=== PATIENT | male | born 1950 ===

== ENCOUNTER 2020-11-04 06:50 | Inpatient (IN) | payer MEDICARE ==
[2020-11-04] MEDS ORDERED: WATER FOR INJ Sterile (PF) 10 ML ONE (15:09)
[2020-11-04] MEDS: ZIPRASIDONE MESYLATE 20 MG VIAL IM PRN (15:13)
--- NOTE | 2020-11-04 19:32 | Consultation ---
History of Present Illness - Reason for Consult Consult date: 11/04/20 medical management Requesting physician: ALEX COLON - History of Present Illness 70 YO Male with Vascular Dementia with Behavioral Disturbance, Cerebral Atherosclerosis, DM, HLD admitted to [facility] for Psychiatric stabilization. Consult placed by Dr. Colon for medical management. The patient was seen and evaluated in his room. Patient resting in bed. Patient denies fever, chills, chest pain, palpitation, productive cough, skin rash, recent ill contacts, or known exposure to COVID-19. No reported nursing events. Past History Past Medical History: diabetes, hypertension, hyperlipidemia Past Surgical History: No surgical history, Other (Reviewed) Social history: . denies: smoking, alcohol abuse, prescription drug abuse Family history: diabetes, hypertension Medications and Allergies Allergies Allergy/AdvReac Type Severity Reaction Status Date / Time No Known Allergies Allergy Verified 11/04/20 21:26 Home Medications Medication Instructions Recorded Confirmed Last Taken Type PARoxetine [Paxil] 20 mg PO 11/04/20 Unknown History Pravastatin [Pravachol] 40 mg PO QHS 11/04/20 11/04/20 Unknown History Trazodone HCl 25 mg PO HS 11/04/20 11/04/20 Unknown History glipiZIDE [Glucotrol] 5 mg PO BID 11/04/20 11/04/20 Unknown History Active Meds: Active Medications Pravastatin Sodium (Pravastatin 40 Mg Tab) 40 mg PO QHS [facility] Trazodone HCl (Trazodone 50 Mg Tab) 25 mg PO HS [facility] Ziprasidone (Ziprasidone Mesylate 20 Mg Vial) 10 mg IM Q6H PRN PRN Reason: Agitation Last Admin: 11/04/20 15:13 Dose: 10 mg Documented by: Review of Systems Constitutional: no weight loss, no weight gain, no fever, no chills Ears, nose, mouth and throat: no ear pain, no decreased hearing, no nose pain, no nasal congestion, no nasal discharge Cardiovascular: no chest pain, no orthopnea, no palpitations, no rapid/irregular heart beat, no edema Respiratory: no cough, no cough with sputum, no excessive sputum Gastrointestinal: no abdominal pain, no nausea, no vomiting, no diarrhea Genitourinary Male: no hematuria, no flank pain, no discharge, no urinary frequency, no urinary hesitancy, no nocturia Rectal: no pain, no incontinence, no bleeding Musculoskeletal: no neck stiffness, no neck pain, no low back pain, no leg numbness/tingling Integumentary: no rash, no pruritis, no redness, no sores, no wounds, no jaundice Neurological: no head injury, no transient paralysis, no paralysis, no weakness, no parathesias, no numbness, no tingling, no seizures Psychiatric: no anxiety, no memory loss Endocrine: no cold intolerance, no heat intolerance, no nocturia, no excessive sweating Hematologic/Lymphatic: no easy bruising, no lymphadenopathy Allergic/Immunologic: no urticaria, no allergic rhinitis, no persistent infections Exam - Constitutional Vitals: Temp Pulse Resp BP Pulse Ox 52 L 16 11/04/20 10:25 11/04/20 10:25 General appearance: Present: mild distress - EENT Eyes: Present: PERRL ENT: clear oral mucosa, hearing decreased - Neck Neck: Present: supple, normal ROM - Respiratory Respiratory effort: normal Respiratory: bilateral: CTA - Cardiovascular Heart Sounds: Present: S1 & S2. Absent: rub, click - Extremities Extremities: pulses symmetrical, No edema Peripheral Pulses: within normal limits - Abdominal General gastrointestinal: Present: soft, non-tender, non-distended, normal bowel sounds Male genitourinary: Present: normal - Integumentary Integumentary: Present: clear, warm, dry - Musculoskeletal Musculoskeletal: gait normal, strength equal bilaterally - Psychiatric Psychiatric: cooperative - Neurologic Neurologic: CNII-XII intact, moves all extremities Results - Labs CBC & Chem 7: 11/04/20 21:23 11/04/20 21:23 Assessment and Plan - Patient Problems (1) Vascular dementia with behavioral disturbance Current Visit: Yes Status: Acute Plan to address problem: Verbal prompting, verbal redirection, benzodiazepine therapy as clinically indicated, supportive care. (2) Cerebral atherosclerosis Current Visit: Yes Status: Acute Plan to address problem: Risk factor reduction, antiplatelet therapy as clinically indicated, supportive care. (3) Diabetes Current Visit: Yes Status: Acute Plan to address problem: Consistent carbohydrate diet, resume glipizide 5 mg p.o. twice daily (4) Hypertension Current Visit: Yes Status: Acute Qualifiers: Hypertension type: essential hypertension Qualified Code(s): I10 - Essential (primary) hypertension Plan to address problem: Monitor blood pressure every shift, continue medical management (5) Hyperlipidemia Current Visit: Yes Status: Acute Qualifiers: Hyperlipidemia type: mixed hyperlipidemia Qualified Code(s): E78.2 - Mixed hyperlipidemia Plan to address problem: Low-cholesterol diet , statin therapy.
[2020-11-04 21:35] LABS: Basophils % (Auto) 0.6 % (0.0-1.8); Eosinophils % (Auto) 0.5 % (0.0-4.3); Hematocrit 30.3 % (35.5-45.6); Hemoglobin 10.5 gm/dl (11.8-15.2); Lymphocytes # (Auto) 1.1 K/mm3 (1.2-5.4); Lymphocytes % (Auto) 21.4 % (13.4-35.0); Mean Corpuscular HGB Conc 35 % (32-34); Mean Corpuscular Volume 92 fl (84-94); Monocytes # (Auto) 0.4 K/mm3 (0.0-0.8); Monocytes % (Auto) 7.9 % (0.0-7.3); Platelet Count 167 K/mm3 (140-440); Red Blood Count 3.31 M/mm3 (3.65-5.03); Red Cell Distribution Width 13.2 % (13.2-15.2)
[2020-11-04] MEDS: traZODone 50 MG TAB PO SCH (21:53)
[2020-11-04] MEDS: PRAVASTATIN 40 MG TAB PO SCH (21:54)
[2020-11-04 21:57] LABS: Albumin 3.9 g/dL (3.9-5); Calcium 8.9 mg/dL (8.4-10.2); Chol/HDL Ratio 2.77 %
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
[2020-11-05] MEDS: risperiDONE 0.25 MG TAB PO SCH ×2 (18:29→21:39)
[2020-11-05] MEDS: glipiZIDE 5 MG TAB PO SCH ×2 (18:29→21:39)
[2020-11-05] MEDS: PRAVASTATIN 40 MG TAB PO SCH (21:39)
[2020-11-05] MEDS: traZODone 50 MG TAB PO SCH (21:39)
[2020-11-05] MEDS: VALPROIC ACID 250 MG/5 ML ORAL LIQD PO SCH (21:39)
[2020-11-06] MEDS: risperiDONE 0.25 MG TAB PO SCH ×2 (09:20→21:35)
[2020-11-06] MEDS: glipiZIDE 5 MG TAB PO SCH ×2 (09:20→16:41)
[2020-11-06] MEDS: VALPROIC ACID 250 MG/5 ML ORAL LIQD PO SCH ×2 (09:20→21:34)
--- NOTE | 2020-11-06 14:44 | Progress Note ---
Subjective Date of service: 11/06/20 Principal diagnosis: (1) Dementia with behavioral disturbance Subjective Comment: Psych nurse: Received patient at 1900 on 11/05. He has an angry affect and is having difficulty expressing words. He denies other needs. Last evening the patient indicated he does not like to be rushed. The best communication path with him is to give him choices and allow him to make the decision. When approached in this manner he will cooperate with requests after a short time. He refused to take his bedtime medications and threw them in front of the nurse. Overnight the patient rested quietly and presents as sleeping 7 hours. Will continue to monitor patient for safey. Psych Progress Patient seen this AM, awake and alert in activity room, engaged in conversation but non sensical. Patient says he thinks he knows the year, then he says his brain not thinking enough. Patient talks about being here, and having a room, he wants to go in, needs gas and some other resources, but smiling pleasantly. Patient says he doesnt know why he is here. REVIEW OF SYSTEMS ROS cannot be reliably obtained from the patient due to his withdrwn state MENTAL STATUS EXAMINATION General Appearance and Behavior: Age appropriate, good hygiene, wearing appropriate clothes, uncooperative polite with questioning. Cooperation: Withdrawn Psychomotor Behavior: Psychomotor agitation Mood: Affect and affective range: Flat Thought Process: Tangential, loose associattion Thought Content: Paranoid and confused Speech: Normal volume, Regular rate and rhythm, Intellectual Functioning: Poor Suicidal Ideation: N/A Homicidal Ideation: N/A Impulse Control: Unimpaired Insight and Judgment: Impaired Memory: memory impaired Attention:Distractible, Orientation: Alert, but disoriented and confused Assessment and Plan - Psychiatric problem (1) Dementia with behavioral disturbance Current Visit: Yes Status: Acute Treatment Plan Continue depakote liquid. and risperidone .5mg BID Patient admitted for inpatient psychiatric evaluation, medication adjustment and close monitoring The patient's behavior, mood, sleep and appetite will be closely monitored. Patient enrolled in individual and group therapeutic sessions and encouraged to attend. Patient provided with a safe and structured environment. Patient's physical health needs will be addressed by the Hospitalist. Hospitalist Consulted Labs including CBC, CMP, Lipid profile and Hemoglobin A1C levels ordered for baseline reference Social Assessment will be completed and the Assistant Community Manager will work with patient and family to ensure a suitable and safe disposition Medication adjustment will be made as clinically indicated Usual Wellness Voodoo/Preservation: - Start Trazodone 50 mg po QHS & 50 mg po QHS PRN between 10 PM & 2 AM for insomnia - Start Melatonin 5 mg po QHS to promote circadian rhythm - Start [place]-3 for brain health, reduce impulsivity, and as adjunctive treatment for mood disorder, continue upon discharge given overall benefits. - Start B1 prophylaxis with 200 mg po for 5 days The patient agreed on the treatment plan, understood the risk, benefit, alternative treatment, potential consequence of no treatment, and gave informed consent. Initial Certification Inpatient psych services: I certify that the inpatient psychiatric services are required for treatment that could reasonably be expected to improve the patient's condition. Estimated days: 6 Post hospital care: primary care provider, psychiatric provider Assessment and Plan - Patient Problems (1) Dementia with behavioral disturbance Current Visit: Yes Status: Acute Medications and Allergies Allergies Allergy/AdvReac Type Severity Reaction Status Date / Time No Known Allergies Allergy Verified 11/04/20 21:26 Home Medications Medication Instructions Recorded Confirmed Last Taken Type PARoxetine [Paxil] 20 mg PO DAILY 11/04/20 11/06/20 Unknown History Pravastatin [Pravachol] 40 mg PO QHS 11/04/20 11/04/20 Unknown History Trazodone HCl 25 mg PO HS 11/04/20 11/04/20 Unknown History glipiZIDE [Glucotrol] 5 mg PO BID 11/04/20 11/04/20 Unknown History Aspirin EC [Halfprin EC] 81 mg PO DAILY 11/06/20 11/06/20 Unknown History Docusate Sodium [Colace CAP] 100 mg PO HS 11/06/20 11/06/20 Unknown History Ferrous Sulfate [Iron 325 MG] 325 mg PO DAILY 11/06/20 11/06/20 Unknown History HYDROcodone/APAP 5-325 [[place] 1 tab PO Q8HR PRN 11/06/20 11/06/20 Unknown History 5-325 mg TAB] Melatonin [Melatonin 5MG TAB] 5 mg PO QHS 11/06/20 11/06/20 Unknown History Ondansetron HCl [Zofran] 4 mg PO Q8HR PRN 11/06/20 11/06/20 Unknown History amLODIPine 10 mg PO DAILY 11/06/20 11/06/20 Unknown History donepeziL [Aricept] 10 mg PO HS 11/06/20 11/06/20 Unknown History hydrOXYzine HCL [Atarax] 25 mg PO HS 11/06/20 11/06/20 Unknown History hydrOXYzine HCL [Atarax] 25 mg PO TID PRN 11/06/20 11/06/20 Unknown History lisinopriL [Lisinopril] 10 mg PO DAILY 11/06/20 11/06/20 Unknown History Active Meds: Active Medications Glipizide (Glipizide 5 Mg Tab) 5 mg PO BIDDIAB [facility] Last Admin: 11/06/20 09:20 Dose: 5 mg Documented by: Pravastatin Sodium (Pravastatin 40 Mg Tab) 40 mg PO QHS [facility] Last Admin: 11/05/20 21:39 Dose: 40 mg Documented by: Risperidone (Risperidone 0.25 Mg Tab) 0.5 mg PO BID [facility] Last Admin: 11/06/20 09:20 Dose: 0.5 mg Documented by: Trazodone HCl (Trazodone 50 Mg Tab) 25 mg PO [facility] Last Admin: 11/05/20 21:39 Dose: 25 mg Documented by: Valproic Acid (Valproic Acid 250 Mg/5 Ml Oral Liqd) 250 mg PO BID [facility] Last Admin: 11/06/20 09:20 Dose: 250 mg Documented by: Ziprasidone (Ziprasidone Mesylate 20 Mg Vial) 10 mg IM Q6H PRN PRN Reason: Agitation Last Admin: 11/04/20 15:13 Dose: 10 mg Documented by: Results - Results Labs/Vitals: Laboratory Last Values WBC 5.0 K/mm3 (4.5-11.0) 11/04/20 21: RBC 3.31 M/mm3 (3.65-5.03) L 11/04/20 21:23 Hgb 10.5 gm/dl (11.8-15.2) L 11/04/20 21: Hct 30.3 % (35.5-45.6) L 11/04/20 21: MCV 92 fl (84-94) 11/04/20 21: MCH 32 pg (28-32) 11/04/20 21: MCHC 35 % (32-34) H 11/04/20 21: RDW 13.2 % (13.2-15.2) 11/04/20 21:23 Plt Count 167 K/mm3 (140-440) 11/04/20 21:23 Lymph % (Auto) 21.4 % (13.4-35.0) 11/04/20 21: [place] % (Auto) 7.9 % (0.0-7.3) H 11/04/20 21:23 Eos % (Auto) 0.5 % (0.0-4.3) 11/04/20 21: Baso % (Auto) 0.6 % (0.0-1.8) 11/04/20 21: Lymph # (Auto) 1.1 K/mm3 (1.2-5.4) L 11/04/20 21: [place] # (Auto) 0.4 K/mm3 (0.0-0.8) 11/04/20 21: Eos # (Auto) 0.0 K/mm3 (0.0-0.4) 11/04/20 21: Baso # (Auto) 0.0 K/mm3 (0.0-0.1) 11/04/20 21: Seg Neutrophils % 69.6 % (40.0-70.0) 11/04/20 21: Seg Neutrophils # 3.5 K/mm3 (1.8-7.7) 11/04/20 21: Sodium 141 mmol/L (137-145) 11/04/20 21: Potassium 4.6 mmol/L (3.6-5.0) 11/04/20 21: Chloride 107.8 mmol/L (98-107) H 11/04/20 21: Carbon Dioxide 23 mmol/L (22-30) 11/04/20 21: Anion Gap 15 mmol/L 11/04/20 21:23 BUN 42 mg/dL (9-20) H 11/04/20 21:23 Creatinine 2.8 mg/dL (0.8-1.3) H 11/04/20 21:23 Estimated GFR 23 ml/min 11/04/20 21:23 BUN/Creatinine Ratio 15 % 11/04/20 21:23 Glucose 156 mg/dL (75-100) H 11/04/20 21:23 POC Glucose 200 mg/dL (70-105) H 11/06/20 07:58 Hemoglobin A1c 5.2 % (4-6) 11/04/20 21: Calcium 8.9 mg/dL (8.4-10.2) 11/04/20 21: Total Bilirubin 0.50 mg/dL (0.1-1.2) 11/04/20 21:23 AST 17 units/L (5-40) 11/04/20 21: ALT 9 units/L (7-56) 11/04/20 21:23 Alkaline Phosphatase 100 units/L (35-129) 11/04/20 21:23 Total Protein 6.9 g/dL (6.3-8.2) 11/04/20 21: Albumin 3.9 g/dL (3.9-5) 11/04/20 21: Albumin/Globulin Ratio 1.3 % 11/04/20 21: Triglycerides 73 mg/dL (2-149) 11/04/20 21: Cholesterol 133 mg/dL (50-199) 11/04/20 21:23 LDL Cholesterol Direct 79 mg/dL (50-130) 11/04/20 21: HDL Cholesterol 48 mg/dL (40-59) 11/04/20 21: Cholesterol/HDL Ratio 2.77 % 11/04/20 21:23 TSH 2.440 mlU/mL (0.270-4.200) 11/04/20 21:23 Last Vital Signs Temp 97.7 F 11/05/20 19:46 Pulse 60 11/05/20 19:46 Resp 16 11/05/20 19:46 BP 122/65 11/05/20 19:46 Pulse Ox 100 11/05/20 19:46
[2020-11-06] MEDS: traZODone 50 MG TAB PO SCH (21:35)
[2020-11-06] MEDS: PRAVASTATIN 40 MG TAB PO SCH (21:35)
--- NOTE | 2020-11-07 10:03 | Progress Note ---
Subjective Date of service: 11/07/20 Principal diagnosis: (1) Dementia with behavioral disturbance Subjective Comment: Psych nurse: Pt received sitting quietly in the activity room. Observed to be confused and incongruent. Pt hallucinating and responding to internal stimulus. No sign of pain and no acute distress observed. Will continue to monitor. Psych Progress Patient seen in room today, he is awake and making attempt to get out of bed. Patient had a conversation at this a.m., nurse reported patient was restless all night with poor sleep REVIEW OF SYSTEMS ROS cannot be reliably obtained from the patient due to his withdrwn state MENTAL STATUS EXAMINATION General Appearance and Behavior: Age appropriate, good hygiene, wearing appropriate clothes, uncooperative polite with questioning. Cooperation: Withdrawn Psychomotor Behavior: Psychomotor agitation Mood: Affect and affective range: Flat Thought Process: Tangential, loose associattion Thought Content: Paranoid and confused Speech: Normal volume, Regular rate and rhythm, Intellectual Functioning: Poor Suicidal Ideation: N/A Homicidal Ideation: N/A Impulse Control: Unimpaired Insight and Judgment: Impaired Memory: memory impaired Attention:Distractible, Orientation: Alert, but disoriented and confused Assessment and Plan - Psychiatric problem (1) Dementia with behavioral disturbance Current Visit: Yes Status: Acute Treatment Plan Continue depakote liquid. and risperidone .5mg BID. Remeron 15mh QHS added Patient admitted for inpatient psychiatric evaluation, medication adjustment and close monitoring The patient's behavior, mood, sleep and appetite will be closely monitored. Patient enrolled in individual and group therapeutic sessions and encouraged to attend. Patient provided with a safe and structured environment. Patient's physical health needs will be addressed by the Hospitalist. Hospitalist Consulted Labs including CBC, CMP, Lipid profile and Hemoglobin A1C levels ordered for baseline reference Social Assessment will be completed and the Public Health Director will work with patient and family to ensure a suitable and safe disposition Medication adjustment will be made as clinically indicated Usual Wellness Restorationist/Preservation: - Start Melatonin 5 mg po QHS to promote circadian rhythm - Start [place]-3 for brain health, reduce impulsivity, and as adjunctive treatment for mood disorder, continue upon discharge given overall benefits. - Start B1 prophylaxis with 200 mg po for 5 days The patient agreed on the treatment plan, understood the risk, benefit, alternative treatment, potential consequence of no treatment, and gave informed consent. Initial Certification Inpatient psych services: I certify that the inpatient psychiatric services are required for treatment that could reasonably be expected to improve the patient's condition. Estimated days: 5 Post hospital care: primary care provider, psychiatric provider Assessment and Plan - Patient Problems (1) Dementia with behavioral disturbance Current Visit: Yes Status: Acute Medications and Allergies Allergies Allergy/AdvReac Type Severity Reaction Status Date / Time No Known Allergies Allergy Verified 11/04/20 21:26 Home Medications Medication Instructions Recorded Confirmed Last Taken Type PARoxetine [Paxil] 20 mg PO DAILY 11/04/20 11/06/20 Unknown History Pravastatin [Pravachol] 40 mg PO QHS 11/04/20 11/04/20 Unknown History Trazodone HCl 25 mg PO HS 11/04/20 11/04/20 Unknown History glipiZIDE [Glucotrol] 5 mg PO BID 11/04/20 11/04/20 Unknown History Aspirin EC [Halfprin EC] 81 mg PO DAILY 11/06/20 11/06/20 Unknown History Docusate Sodium [Colace CAP] 100 mg PO HS 11/06/20 11/06/20 Unknown History Ferrous Sulfate [Iron 325 MG] 325 mg PO DAILY 11/06/20 11/06/20 Unknown History HYDROcodone/APAP 5-325 [[place] 1 tab PO Q8HR PRN 11/06/20 11/06/20 Unknown History 5-325 mg TAB] Melatonin [Melatonin 5MG TAB] 5 mg PO QHS 11/06/20 11/06/20 Unknown History Ondansetron HCl [Zofran] 4 mg PO Q8HR PRN 11/06/20 11/06/20 Unknown History amLODIPine 10 mg PO DAILY 11/06/20 11/06/20 Unknown History donepeziL [Aricept] 10 mg PO HS 11/06/20 11/06/20 Unknown History hydrOXYzine HCL [Atarax] 25 mg PO HS 11/06/20 11/06/20 Unknown History hydrOXYzine HCL [Atarax] 25 mg PO TID PRN 11/06/20 11/06/20 Unknown History lisinopriL [Lisinopril] 10 mg PO DAILY 11/06/20 11/06/20 Unknown History Active Meds: Active Medications Glipizide (Glipizide 5 Mg Tab) 5 mg PO BIDDIAB [facility] Last Admin: 11/06/20 16:41 Dose: 5 mg Documented by: Pravastatin Sodium (Pravastatin 40 Mg Tab) 40 mg PO QHS [facility] Last Admin: 11/06/20 21:35 Dose: 40 mg Documented by: Risperidone (Risperidone 0.25 Mg Tab) 0.5 mg PO BID [facility] Last Admin: 11/06/20 21:35 Dose: 0.5 mg Documented by: Trazodone HCl (Trazodone 50 Mg Tab) 25 mg PO HS [facility] Last Admin: 11/06/20 21:35 Dose: 25 mg Documented by: Valproic Acid (Valproic Acid 250 Mg/5 Ml Oral Liqd) 250 mg PO BID [facility] Last Admin: 11/06/20 21:34 Dose: 250 mg Documented by: Ziprasidone (Ziprasidone Mesylate 20 Mg Vial) 10 mg IM Q6H PRN PRN Reason: Agitation Last Admin: 11/04/20 15:13 Dose: 10 mg Documented by: Results - Results Labs/Vitals: Laboratory Last Values WBC 5.0 K/mm3 (4.5-11.0) 11/04/20 21: RBC 3.31 M/mm3 (3.65-5.03) L 11/04/20 21:23 Hgb 10.5 gm/dl (11.8-15.2) L 11/04/20 21: Hct 30.3 % (35.5-45.6) L 11/04/20 21: MCV 92 fl (84-94) 11/04/20 21: MCH 32 pg (28-32) 11/04/20 21: MCHC 35 % (32-34) H 11/04/20 21: RDW 13.2 % (13.2-15.2) 11/04/20 21: Plt Count 167 K/mm3 (140-440) 11/04/20 21: Lymph % (Auto) 21.4 % (13.4-35.0) 11/04/20 21: [place] % (Auto) 7.9 % (0.0-7.3) H 11/04/20 21: Eos % (Auto) 0.5 % (0.0-4.3) 11/04/20 21: Baso % (Auto) 0.6 % (0.0-1.8) 05/13/21 21:23 Lymph # (Auto) 1.1 K/mm3 (1.2-5.4) L 11/04/20 21:23 [place] # (Auto) 0.4 K/mm3 (0.0-0.8) 11/04/20 21:23 Eos # (Auto) 0.0 K/mm3 (0.0-0.4) 11/04/20 21:23 Baso # (Auto) 0.0 K/mm3 (0.0-0.1) 11/04/20 21:23 Seg Neutrophils % 69.6 % (40.0-70.0) 11/04/20 21: Seg Neutrophils # 3.5 K/mm3 (1.8-7.7) 11/04/20 21:23 Sodium 141 mmol/L (137-145) 11/04/20 21: Potassium 4.6 mmol/L (3.6-5.0) 11/04/20 21:23 Chloride 107.8 mmol/L (98-107) H 11/04/20 21:23 Carbon Dioxide 23 mmol/L (22-30) 11/04/20 21:23 Anion Gap 15 mmol/L 11/04/20 21:23 BUN 42 mg/dL (9-20) H 11/04/20 21:23 Creatinine 2.8 mg/dL (0.8-1.3) H 11/04/20 21:23 Estimated GFR 23 ml/min 11/04/20 21:23 BUN/Creatinine Ratio 15 % 11/04/20 21:23 Glucose 156 mg/dL (75-100) H 11/04/20 21:23 POC Glucose 116 mg/dL (70-105) H 11/07/20 07:49 Hemoglobin A1c 5.2 % (4-6) 11/04/20 21:23 Calcium 8.9 mg/dL (8.4-10.2) 11/04/20 21:23 Total Bilirubin 0.50 mg/dL (0.1-1.2) 11/04/20 21:23 AST 17 units/L (5-40) 11/04/20 21:23 ALT 9 units/L (7-56) 11/04/20 21:23 Alkaline Phosphatase 100 units/L (35-129) 11/04/20 21:23 Total Protein 6.9 g/dL (6.3-8.2) 11/04/20: Albumin 3.9 g/dL (3.9-5) 11/04/20: Albumin/Globulin Ratio 1.3 % 11/04/20: Triglycerides 73 mg/dL (2-149) 11/04/20: Cholesterol 133 mg/dL (50-199) 11/04/20: LDL Cholesterol Direct 79 mg/dL (50-130) 11/04/20: HDL Cholesterol 48 mg/dL (40-59) 11/04/20: Cholesterol/HDL Ratio 2.77 % 11/04/20: TSH 2.440 mlU/mL (0.270-4.200) 11/04/20: Last Vital Signs Temp 98.6 F 11/06/20 09:18 Pulse 51 L 11/06/20 09:18 Resp 18 11/06/20 09:18 BP 116/52 11/06/20 09:18 Pulse Ox 99 11/06/20 09:18
[2020-11-07] MEDS: glipiZIDE 5 MG TAB PO SCH ×2 (10:10→16:51)
[2020-11-07] MEDS: VALPROIC ACID 250 MG/5 ML ORAL LIQD PO SCH ×2 (10:10→22:22)
[2020-11-07] MEDS: risperiDONE 0.25 MG TAB PO SCH ×2 (10:10→22:21)
[2020-11-07] MEDS: PRAVASTATIN 40 MG TAB PO SCH (22:21)
[2020-11-07] MEDS: MELATONIN 5 MG TAB PO SCH (22:21)
[2020-11-07] MEDS: MIRTAZAPINE 15 MG TAB PO SCH (22:22)
[2020-11-08] MEDS: glipiZIDE 5 MG TAB PO SCH ×2 (08:54→17:49)
[2020-11-08] MEDS: risperiDONE 0.25 MG TAB PO SCH ×3 (09:25→22:33)
[2020-11-08] MEDS: VALPROIC ACID 250 MG/5 ML ORAL LIQD PO SCH ×3 (09:26→22:33)
--- NOTE | 2020-11-08 11:26 | Progress Note ---
Subjective Date of service: 11/08/20 Principal diagnosis: (1) Dementia with behavioral disturbance Subjective Comment: Psych nurse: Patient slept late this morning. Since awakening her has spent most of his time in the activity. He has some interaction with others. He often wants to walk by himself and pick real and unreal objects off the floor. He presents as independent and wants to make his own decisions. His refused breakfast but ate lunch and dinner. He is medication compliant. Will continue to monitor patient for safety. Psych Progress Patient in room sleeping heaving, responds to loud stimulus but otherwise goes back to bed. WIll continue to observe. REVIEW OF SYSTEMS ROS cannot be reliably obtained from the patient due to his withdrawn state MENTAL STATUS EXAMINATION General Appearance and Behavior: Age appropriate, good hygiene, wearing appropriate clothes, uncooperative polite with questioning. Cooperation: Withdrawn Psychomotor Behavior: Psychomotor agitation Mood: Affect and affective range: Flat Thought Process: Tangential, loose associattion Thought Content: Paranoid and confused Speech: Normal volume, Regular rate and rhythm, Intellectual Functioning: Poor Suicidal Ideation: N/A Homicidal Ideation: N/A Impulse Control: Unimpaired Insight and Judgment: Impaired Memory: memory impaired Attention:Distractible, Orientation: Alert, but disoriented and confused Assessment and Plan - Psychiatric problem (1) Dementia with behavioral disturbance Current Visit: Yes Status: Acute Treatment Plan Continue depakote liquid. and risperidone .5mg BID. Remeron 15mh QHS added Patient admitted for inpatient psychiatric evaluation, medication adjustment and close monitoring The patient's behavior, mood, sleep and appetite will be closely monitored. Patient enrolled in individual and group therapeutic sessions and encouraged to attend. Patient provided with a safe and structured environment. Patient's physical health needs will be addressed by the Hospitalist. Hospitalist Consulted Labs including CBC, CMP, Lipid profile and Hemoglobin A1C levels ordered for baseline reference Social Assessment will be completed and the [place] Inspector will work with patient and family to ensure a suitable and safe disposition Medication adjustment will be made as clinically indicated Usual Wellness Alevism/Preservation: - Start Melatonin 5 mg po QHS to promote circadian rhythm - Start [place]-3 for brain health, reduce impulsivity, and as adjunctive treatment for mood disorder, continue upon discharge given overall benefits. - Start B1 prophylaxis with 200 mg po for 5 days The patient agreed on the treatment plan, understood the risk, benefit, alternative treatment, potential consequence of no treatment, and gave informed consent. Initial Certification Inpatient psych services: I certify that the inpatient psychiatric services are required for treatment that could reasonably be expected to improve the patient's condition. Estimated days: 5 Post hospital care: primary care provider, psychiatric provider Assessment and Plan - Patient Problems (1) Dementia with behavioral disturbance Current Visit: Yes Status: Acute Medications and Allergies Allergies Allergy/AdvReac Type Severity Reaction Status Date / Time No Known Allergies Allergy Verified 11/04/20 21:26 Home Medications Medication Instructions Recorded Confirmed Last Taken Type PARoxetine [Paxil] 20 mg PO DAILY 11/04/20 11/06/20 Unknown History Pravastatin [Pravachol] 40 mg PO QHS 11/04/20 11/04/20 Unknown History Trazodone HCl 25 mg PO HS 11/04/20 11/04/20 Unknown History glipiZIDE [Glucotrol] 5 mg PO BID 11/04/20 11/04/20 Unknown History Aspirin EC [Halfprin EC] 81 mg PO DAILY 11/06/20 11/06/20 Unknown History Docusate Sodium [Colace CAP] 100 mg PO HS 11/06/20 11/06/20 Unknown History Ferrous Sulfate [Iron 325 MG] 325 mg PO DAILY 11/06/20 11/06/20 Unknown History HYDROcodone/APAP 5-325 [[place] 1 tab PO Q8HR PRN 11/06/20 11/06/20 Unknown History 5-325 mg TAB] Melatonin [Melatonin 5MG TAB] 5 mg PO QHS 11/06/20 11/06/20 Unknown History Ondansetron HCl [Zofran] 4 mg PO Q8HR PRN 11/06/20 11/06/20 Unknown History amLODIPine 10 mg PO DAILY 11/06/20 11/06/20 Unknown History donepeziL [Aricept] 10 mg PO HS 11/06/20 11/06/20 Unknown History hydrOXYzine HCL [Atarax] 25 mg PO HS 11/06/20 11/06/20 Unknown History hydrOXYzine HCL [Atarax] 25 mg PO TID PRN 11/06/20 11/06/20 Unknown History lisinopriL [Lisinopril] 10 mg PO DAILY 11/06/20 11/06/20 Unknown History Active Meds: Active Medications Glipizide (Glipizide 5 Mg Tab) 5 mg PO [facility]DIAB [facility] Last Admin: 11/07/20 16:51 Dose: 5 mg Documented by: Melatonin (Melatonin 5 Mg Tab) 5 mg PO QHS [facility] Last Admin: 11/07/20 22:21 Dose: 5 mg Documented by: Mirtazapine (Mirtazapine 15 Mg Tab) 15 mg PO QHS [facility] Last Admin: 11/07/20 22:22 Dose: 15 mg Documented by: Pravastatin Sodium (Pravastatin 40 Mg Tab) 40 mg PO QHS [facility] Last Admin: 11/07/20 22:21 Dose: 40 mg Documented by: Risperidone (Risperidone 0.25 Mg Tab) 0.5 mg PO BID [facility] Last Admin: 11/07/20 22:21 Dose: 0.5 mg Documented by: Valproic Acid (Valproic Acid 250 Mg/5 Ml Oral Liqd) 250 mg PO BID [facility] Last Admin: 11/07/20 22:22 Dose: 250 mg Documented by: Ziprasidone (Ziprasidone Mesylate 20 Mg Vial) 10 mg IM Q6H PRN PRN Reason: Agitation Last Admin: 11/04/20 15:13 Dose: 10 mg Documented by: Results - Results Labs/Vitals: Laboratory Last Values WBC 5.0 K/mm3 (4.5-11.0) 11/04/20 21: RBC 3.31 M/mm3 (3.65-5.03) L 11/04/20 21:23 Hgb 10.5 gm/dl (11.8-15.2) L 11/04/20 21: Hct 30.3 % (35.5-45.6) L 11/04/20 21: MCV 92 fl (84-94) 11/04/20 21: MCH 32 pg (28-32) 11/04/20 21: MCHC 35 % (32-34) H 11/04/20 21: RDW 13.2 % (13.2-15.2) 11/04/20 21: Plt Count 167 K/mm3 (140-440) 11/04/20 21:23 Lymph % (Auto) 21.4 % (13.4-35.0) 11/04/20 21: [place] % (Auto) 7.9 % (0.0-7.3) H 11/04/20 21:23 Eos % (Auto) 0.5 % (0.0-4.3) 11/04/20 21: Baso % (Auto) 0.6 % (0.0-1.8) 11/04/20 21: Lymph # (Auto) 1.1 K/mm3 (1.2-5.4) L 11/04/20 21:23 [place] # (Auto) 0.4 K/mm3 (0.0-0.8) 11/04/20 21: Eos # (Auto) 0.0 K/mm3 (0.0-0.4) 11/04/20 21:23 Baso # (Auto) 0.0 K/mm3 (0.0-0.1) 11/04/20 21: Seg Neutrophils % 69.6 % (40.0-70.0) 11/04/20 21: Seg Neutrophils # 3.5 K/mm3 (1.8-7.7) 11/04/20 21: Sodium 141 mmol/L (137-145) 11/04/20 21: Potassium 4.6 mmol/L (3.6-5.0) 11/04/20 21: Chloride 107.8 mmol/L (98-107) H 11/04/20 21: Carbon Dioxide 23 mmol/L (22-30) 11/04/20 21: Anion Gap 15 mmol/L 11/04/20 21:23 BUN 42 mg/dL (9-20) H 11/04/20 21: Creatinine 2.8 mg/dL (0.8-1.3) H 11/04/20 21:23 Estimated GFR 23 ml/min 11/04/20 21: BUN/Creatinine Ratio 15 % 11/04/20 21:23 Glucose 156 mg/dL (75-100) H 11/04/20 21: POC Glucose 142 mg/dL (70-105) H 11/07/20 21:19 Hemoglobin A1c 5.2 % (4-6) 11/04/20 21:23 Calcium 8.9 mg/dL (8.4-10.2) 11/04/20 21:23 Total Bilirubin 0.50 mg/dL (0.1-1.2) 11/04/20 21: AST 17 units/L (5-40) 11/04/20 21: ALT 9 units/L (7-56) 11/04/20 21: Alkaline Phosphatase 100 units/L (35-129) 11/04/20 21: Total Protein 6.9 g/dL (6.3-8.2) 11/04/20: Albumin 3.9 g/dL (3.9-5) 11/04/20: Albumin/Globulin Ratio 1.3 % 11/04/20 21: Triglycerides 73 mg/dL (2-149) 11/04/20 21: Cholesterol 133 mg/dL (50-199) 11/04/20: LDL Cholesterol Direct 79 mg/dL (50-130) 11/04/20: HDL Cholesterol 48 mg/dL (40-59) 11/04/20: Cholesterol/HDL Ratio 2.77 % 11/04/20: TSH 2.440 mlU/mL (0.270-4.200) 11/04/20 21: Last Vital Signs Temp 97.8 F 11/07/20 19:47 Pulse 66 11/07/20 19:47 Resp 18 11/07/20 19:47 BP 137/83 11/07/20 19:47 Pulse Ox 99 11/07/20 19:47
--- NOTE | 2020-11-08 20:08 | Progress Note ---
Assessment and Plan - Patient Problems (1) Vascular dementia with behavioral disturbance Current Visit: Yes Status: Acute Plan to address problem: Verbal prompting, verbal redirection, benzodiazepine therapy as clinically indicated, supportive care. (2) Cerebral atherosclerosis Current Visit: Yes Status: Acute Plan to address problem: Risk factor reduction, antiplatelet therapy as clinically indicated, supportive care. (3) Diabetes Current Visit: Yes Status: Acute Plan to address problem: Consistent carbohydrate diet, resume glipizide 5 mg p.o. twice daily (4) Hypertension Current Visit: Yes Status: Acute Qualifiers: Hypertension type: essential hypertension Qualified Code(s): I10 - Essential (primary) hypertension Plan to address problem: Monitor blood pressure every shift, continue medical management (5) Hyperlipidemia Current Visit: Yes Status: Acute Qualifiers: Hyperlipidemia type: mixed hyperlipidemia Qualified Code(s): E78.2 - Mixed hyperlipidemia Plan to address problem: Low-cholesterol diet , statin therapy. History Interval history: 70 YO Male with Vascular Dementia with Behavioral Disturbance, Cerebral Atherosclerosis, DM, HLD admitted to [facility] for Psychiatric stabiliza tion. No reported nursing events. Patient denies pain Hospitalist Physical - Constitutional Vitals: Temp Pulse Resp BP Pulse Ox 97.7 F 64 18 171/64 98 11/08/20 10:26 11/08/20 10:26 11/08/20 10:26 11/08/20 10:26 11/08/20 10:26 General appearance: Present: mild distress - EENT Eyes: Present: PERRL, EOM intact ENT: hearing decreased - Neck Neck: Present: supple - Respiratory Respiratory effort: normal Respiratory: bilateral: CTA - Cardiovascular Rhythm: regular Heart Sounds: Present: S1 & S2 - Extremities Extremities: no ischemia Peripheral Pulses: within normal limits - Abdominal General gastrointestinal: soft, non-tender, non-distended - Integumentary Integumentary: Present: clear, dry - Psychiatric Psychiatric: cooperative - Neurologic Neurologic: CNII-XII intact Results - Labs CBC & Chem 7: 11/04/20 21:23 11/04/20 21:23 Labs: Laboratory Last Values WBC 5.0 K/mm3 (4.5-11.0) 11/04/20 21: RBC 3.31 M/mm3 (3.65-5.03) L 11/04/20 21:23 Hgb 10.5 gm/dl (11.8-15.2) L 11/04/20 21: Hct 30.3 % (35.5-45.6) L 11/04/20 21: MCV 92 fl (84-94) 11/04/20 21:23 MCH 32 pg (28-32) 11/04/20 21: MCHC 35 % (32-34) H 11/04/20 21: RDW 13.2 % (13.2-15.2) 11/04/20 21: Plt Count 167 K/mm3 (140-440) 11/04/20 21: Lymph % (Auto) 21.4 % (13.4-35.0) 11/04/20 21: [place] % (Auto) 7.9 % (0.0-7.3) H 11/04/20 21: Eos % (Auto) 0.5 % (0.0-4.3) 11/04/20 21: Baso % (Auto) 0.6 % (0.0-1.8) 11/04/20 21: Lymph # (Auto) 1.1 K/mm3 (1.2-5.4) L 11/04/20 21: [place] # (Auto) 0.4 K/mm3 (0.0-0.8) 11/04/20 21: Eos # (Auto) 0.0 K/mm3 (0.0-0.4) 11/04/20 21: Baso # (Auto) 0.0 K/mm3 (0.0-0.1) 11/04/20 21: Seg Neutrophils % 69.6 % (40.0-70.0) 11/04/20 21: Seg Neutrophils # 3.5 K/mm3 (1.8-7.7) 11/04/20 21: Sodium 141 mmol/L (137-145) 11/04/20 21: Potassium 4.6 mmol/L (3.6-5.0) 11/04/20 21: Chloride 107.8 mmol/L (98-107) H 11/04/20 21: Carbon Dioxide 23 mmol/L (22-30) 11/04/20 21:23 Anion Gap 15 mmol/L 11/04/20 21:23 BUN 42 mg/dL (9-20) H 11/04/20 21:23 Creatinine 2.8 mg/dL (0.8-1.3) H 11/04/20 21:23 Estimated GFR 23 ml/min 11/04/20 21:23 BUN/Creatinine Ratio 15 % 11/04/20 21:23 Glucose 156 mg/dL (75-100) H 11/04/20 21:23 POC Glucose 117 mg/dL (70-105) H 11/08/20 11:59 Hemoglobin A1c 5.2 % (4-6) 11/04/20 21:23 Calcium 8.9 mg/dL (8.4-10.2) 11/04/20 21: Total Bilirubin 0.50 mg/dL (0.1-1.2) 11/04/20 21:23 AST 17 units/L (5-40) 11/04/20 21:23 ALT 9 units/L (7-56) 11/04/20 21:23 Alkaline Phosphatase 100 units/L (35-129) 11/04/20 21:23 Total Protein 6.9 g/dL (6.3-8.2) 11/04/20 21:23 Albumin 3.9 g/dL (3.9-5) 11/04/20 21:23 Albumin/Globulin Ratio 1.3 % 11/04/20 21:23 Triglycerides 73 mg/dL (2-149) 11/04/20 21:23 Cholesterol 133 mg/dL (50-199) 11/04/20 21:23 LDL Cholesterol Direct 79 mg/dL (50-130) 11/04/20 21:23 HDL Cholesterol 48 mg/dL (40-59) 11/04/20 21:23 Cholesterol/HDL Ratio 2.77 % 11/04/20 21:23 TSH 2.440 mlU/mL (0.270-4.200) 11/04/20 21:23 [place]/IV: Voiding Method Incontinent Active Medications - Current Medications Current Medications: Generic Name Dose Route Start Last Admin Trade Name Freq PRN Reason Stop Dose Admin Glipizide 5 mg 11/05/20 13:30 11/08/20 17:49 Glipizide 5 Mg Tab PO Not Given BIDDIAB [facility] Melatonin 5 mg 11/07/20 22:00 11/07/20 22:21 Melatonin 5 Mg Tab PO 5 mg QHS [facility] Administration Mirtazapine 15 mg 11/07/20 22:00 11/07/20 22:22 Mirtazapine 15 Mg Tab PO 15 mg QHS [facility] Administration Pravastatin Sodium 40 mg 11/04/20 22:00 11/07/20 22:21 Pravastatin 40 Mg Tab PO 40 mg QHS [facility] Administration Risperidone 0.5 mg 11/05/20 10:30 11/08/20 09:25 Risperidone 0.25 Mg Tab PO 0.5 mg BID [facility] Administration Valproic Acid 250 mg 11/05/20 22:00 11/08/20 09:26 Valproic Acid 250 Mg/5 Ml Oral Liqd PO 250 mg BID [facility] Administration Ziprasidone 10 mg 11/04/20 13:24 11/04/20 15:13 Ziprasidone Mesylate 20 Mg Vial IM 10 mg Q6H PRN Administration Agitation
--- NOTE | 2020-11-08 20:10 | Progress Note ---
Assessment and Plan - Patient Problems (1) Vascular dementia with behavioral disturbance Current Visit: Yes Status: Acute Plan to address problem: Verbal prompting, verbal redirection, benzodiazepine therapy as clinically indicated, supportive care. (2) Cerebral atherosclerosis Current Visit: Yes Status: Acute Plan to address problem: Risk factor reduction, antiplatelet therapy as clinically indicated, supportive care. (3) Diabetes Current Visit: Yes Status: Acute Plan to address problem: Consistent carbohydrate diet, resume glipizide 5 mg p.o. twice daily (4) Hypertension Current Visit: Yes Status: Acute Qualifiers: Hypertension type: essential hypertension Qualified Code(s): I10 - Essential (primary) hypertension Plan to address problem: Monitor blood pressure every shift, continue medical management (5) Hyperlipidemia Current Visit: Yes Status: Acute Qualifiers: Hyperlipidemia type: mixed hyperlipidemia Qualified Code(s): E78.2 - Mixed hyperlipidemia Plan to address problem: Low-cholesterol diet , statin therapy. History Interval history: 70 YO Male with Vascular Dementia with Behavioral Disturbance, Cerebral Atherosclerosis, DM, HLD admitted to [facility] for Psychiatric stabiliza tion. No reported nursing events. Patient denies pain Hospitalist Physical - Constitutional Vitals: Temp Pulse Resp BP Pulse Ox 97.7 F 64 18 171/64 98 11/08/20 10:26 11/08/20 10:26 11/08/20 10:26 11/08/20 10:26 11/08/20 10:26 General appearance: Present: mild distress - EENT Eyes: Present: PERRL, EOM intact ENT: hearing intact, hearing decreased - Neck Neck: Present: supple - Respiratory Respiratory effort: normal Respiratory: bilateral: CTA - Cardiovascular Rhythm: regular Heart Sounds: Present: S1 & S2 - Extremities Extremities: no ischemia Peripheral Pulses: within normal limits - Abdominal General gastrointestinal: soft, non-tender, non-distended - Integumentary Integumentary: Present: clear, dry - Psychiatric Psychiatric: cooperative - Neurologic Neurologic: CNII-XII intact Results - Labs CBC & Chem 7: 11/04/20 21:23 11/04/20 21:23 Labs: Laboratory Last Values WBC 5.0 K/mm3 (4.5-11.0) 11/04/20 21: RBC 3.31 M/mm3 (3.65-5.03) L 11/04/20 21:23 Hgb 10.5 gm/dl (11.8-15.2) L 11/04/20 21: Hct 30.3 % (35.5-45.6) L 11/04/20 21: MCV 92 fl (84-94) 11/04/20 21:23 MCH 32 pg (28-32) 11/04/20 21: MCHC 35 % (32-34) H 11/04/20 21: RDW 13.2 % (13.2-15.2) 11/04/20 21: Plt Count 167 K/mm3 (140-440) 11/04/20 21: Lymph % (Auto) 21.4 % (13.4-35.0) 11/04/20 21: [place] % (Auto) 7.9 % (0.0-7.3) H 11/04/20 21: Eos % (Auto) 0.5 % (0.0-4.3) 11/04/20 21: Baso % (Auto) 0.6 % (0.0-1.8) 11/04/20 21: Lymph # (Auto) 1.1 K/mm3 (1.2-5.4) L 11/04/20 21: [place] # (Auto) 0.4 K/mm3 (0.0-0.8) 11/04/20 21: Eos # (Auto) 0.0 K/mm3 (0.0-0.4) 11/04/20 21: Baso # (Auto) 0.0 K/mm3 (0.0-0.1) 11/04/20 21: Seg Neutrophils % 69.6 % (40.0-70.0) 11/04/20 21: Seg Neutrophils # 3.5 K/mm3 (1.8-7.7) 11/04/20 21: Sodium 141 mmol/L (137-145) 11/04/20 21: Potassium 4.6 mmol/L (3.6-5.0) 11/04/20 21: Chloride 107.8 mmol/L (98-107) H 11/04/20 21: Carbon Dioxide 23 mmol/L (22-30) 11/04/20 21: Anion Gap 15 mmol/L 11/04/20 21:23 BUN 42 mg/dL (9-20) H 11/04/20 21:23 Creatinine 2.8 mg/dL (0.8-1.3) H 11/04/20 21:23 Estimated GFR 23 ml/min 11/04/20 21:23 BUN/Creatinine Ratio 15 % 11/04/20 21:23 Glucose 156 mg/dL (75-100) H 11/04/20 21:23 POC Glucose 117 mg/dL (70-105) H 11/08/20 11:59 Hemoglobin A1c 5.2 % (4-6) 11/04/20 21:23 Calcium 8.9 mg/dL (8.4-10.2) 11/04/20 21: Total Bilirubin 0.50 mg/dL (0.1-1.2) 11/04/20 21: AST 17 units/L (5-40) 11/04/20 21: ALT 9 units/L (7-56) 11/04/20 21: Alkaline Phosphatase 100 units/L (35-129) 11/04/20 21:23 Total Protein 6.9 g/dL (6.3-8.2) 11/04/20 21: Albumin 3.9 g/dL (3.9-5) 11/04/20 21: Albumin/Globulin Ratio 1.3 % 11/04/20 21:23 Triglycerides 73 mg/dL (2-149) 11/04/20 21:23 Cholesterol 133 mg/dL (50-199) 11/04/20 21:23 LDL Cholesterol Direct 79 mg/dL (50-130) 11/04/20 21:23 HDL Cholesterol 48 mg/dL (40-59) 11/04/20 21:23 Cholesterol/HDL Ratio 2.77 % 11/04/20 21: TSH 2.440 mlU/mL (0.270-4.200) 11/04/20 21:23 [place]/IV: Voiding Method Incontinent Active Medications - Current Medications Current Medications: Generic Name Dose Route Start Last Admin Trade Name Freq PRN Reason Stop Dose Admin Glipizide 5 mg 11/05/20 13:30 11/08/20 17:49 Glipizide 5 Mg Tab PO Not Given BIDDIAB EDUARDO Melatonin 5 mg 11/07/20 22:00 11/07/20 22:21 Melatonin 5 Mg Tab PO 5 mg QHS EDUARDO Administration Mirtazapine 15 mg 11/07/20 22:00 11/07/20 22:22 Mirtazapine 15 Mg Tab PO 15 mg QHS EDUARDO Administration Pravastatin Sodium 40 mg 11/04/20 22:00 11/07/20 22:21 Pravastatin 40 Mg Tab PO 40 mg QHS EDUARDO Administration Risperidone 0.5 mg 11/05/20 10:30 11/08/20 09:25 Risperidone 0.25 Mg Tab PO 0.5 mg BID EDUARDO Administration Valproic Acid 250 mg 11/05/20 22:00 11/08/20 09:26 Valproic Acid 250 Mg/5 Ml Oral Liqd PO 250 mg BID EDUARDO Administration Ziprasidone 10 mg 11/04/20 13:24 11/04/20 15:13 Ziprasidone Mesylate 20 Mg Vial IM 10 mg Q6H PRN Administration Agitation
[2020-11-08] MEDS: PRAVASTATIN 40 MG TAB PO SCH ×2 (22:19→22:33)
[2020-11-08] MEDS: MIRTAZAPINE 15 MG TAB PO SCH ×2 (22:19→22:33)
[2020-11-08] MEDS: MELATONIN 5 MG TAB PO SCH ×2 (22:19→22:33)
[2020-11-09] MEDS: glipiZIDE 5 MG TAB PO SCH ×2 (08:00→18:09)
--- NOTE | 2020-11-09 08:42 | Progress Note ---
Subjective Date of service: 11/09/20 Principal diagnosis: (1) Dementia with behavioral disturbance Subjective Comment: Psych nurse: Last evening the patient was having increased vh aeb continually reaching into the floor grabbing at unseen objects. When trying to assist him from falling he would become agitated and try to hit out at staff. He only ate 4 bites of applesauce and drank 1 cup of juice all shift. He became combative while refusing his medication. His speech is increasingly impaired. Overnight the patient rested quietly. He slept 8 hours. Will continue to monitor patient for safety. Psych Progress Nurse reports patient not eating and as active as before. Went to see patient, pt awake in bed, patient greeted, he responded and said good morning. Patient asked if he slpt good and he said. I asked patient why he is not eating, he states because he doesnt care and does want to. I tried to talk to patient again but this time, patient became agitated and he kicked me hard in the groin aware. I walked away. Reason for continued acute inpatient psychiatric hospitalization: Persistently physically agitated unprovoked behavior REVIEW OF SYSTEMS ROS cannot be reliably obtained from the patient due to his withdrawn state MENTAL STATUS EXAMINATION General Appearance and Behavior: Age appropriate, good hygiene, wearing appropriate clothes, uncooperative polite with questioning. Cooperation: Withdrawn Psychomotor Behavior: Psychomotor agitation Mood: Affect and affective range: Flat Thought Process: Tangential, loose associattion Thought Content: Paranoid and confused Speech: Normal volume, Regular rate and rhythm, Intellectual Functioning: Poor Suicidal Ideation: N/A Homicidal Ideation: N/A Impulse Control: Unimpaired Insight and Judgment: Impaired Memory: memory impaired Attention:Distractible, Orientation: Alert, but disoriented and confused Assessment and Plan - Psychiatric problem (1) Dementia with behavioral disturbance Current Visit: Yes Status: Acute Treatment Plan Continue depakote liquid. and risperidone .5mg BID. Remeron 15mh QHS added Patient admitted for inpatient psychiatric evaluation, medication adjustment and close monitoring The patient's behavior, mood, sleep and appetite will be closely monitored. Patient enrolled in individual and group therapeutic sessions and encouraged to attend. Patient provided with a safe and structured environment. Patient's physical health needs will be addressed by the Hospitalist. Hospitalist Consulted Labs including CBC, CMP, Lipid profile and Hemoglobin A1C levels ordered for baseline reference Social Assessment will be completed and the Peripatologist will work with patient and family to ensure a suitable and safe disposition Medication adjustment will be made as clinically indicated Usual Wellness Gnosticism/Preservation: - Start Melatonin 5 mg po QHS to promote circadian rhythm - Start [place]-3 for brain health, reduce impulsivity, and as adjunctive treatment for mood disorder, continue upon discharge given overall benefits. - Start B1 prophylaxis with 200 mg po for 5 days The patient agreed on the treatment plan, understood the risk, benefit, alternative treatment, potential consequence of no treatment, and gave informed consent. Initial Certification Inpatient psych services: I certify that the inpatient psychiatric services are required for treatment that could reasonably be expected to improve the patient's condition. Estimated days: 4 Post hospital care: primary care provider, psychiatric provider Assessment and Plan - Patient Problems (1) Dementia with behavioral disturbance Current Visit: Yes Status: Acute Medications and Allergies Allergies Allergy/AdvReac Type Severity Reaction Status Date / Time No Known Allergies Allergy Verified 11/04/20 21:26 Home Medications Medication Instructions Recorded Confirmed Last Taken Type PARoxetine [Paxil] 20 mg PO DAILY 11/04/20 11/06/20 Unknown History Pravastatin [Pravachol] 40 mg PO QHS 11/04/20 11/04/20 Unknown History Trazodone HCl 25 mg PO HS 11/04/20 11/04/20 Unknown History glipiZIDE [Glucotrol] 5 mg PO BID 11/04/20 11/04/20 Unknown History Aspirin EC [Halfprin EC] 81 mg PO DAILY 11/06/20 11/06/20 Unknown History Docusate Sodium [Colace CAP] 100 mg PO HS 11/06/20 11/06/20 Unknown History Ferrous Sulfate [Iron 325 MG] 325 mg PO DAILY 11/06/20 11/06/20 Unknown History HYDROcodone/APAP 5-325 [[place] 1 tab PO Q8HR PRN 11/06/20 11/06/20 Unknown History 5-325 mg TAB] Melatonin [Melatonin 5MG TAB] 5 mg PO QHS 11/06/20 11/06/20 Unknown History Ondansetron HCl [Zofran] 4 mg PO Q8HR PRN 11/06/20 11/06/20 Unknown History amLODIPine 10 mg PO DAILY 11/06/20 11/06/20 Unknown History donepeziL [Aricept] 10 mg PO HS 11/06/20 11/06/20 Unknown History hydrOXYzine HCL [Atarax] 25 mg PO HS 11/06/20 11/06/20 Unknown History hydrOXYzine HCL [Atarax] 25 mg PO TID PRN 11/06/20 11/06/20 Unknown History lisinopriL [Lisinopril] 10 mg PO DAILY 11/06/20 11/06/20 Unknown History Active Meds: Active Medications Glipizide (Glipizide 5 Mg Tab) 5 mg PO BIDDIAB [facility] Last Admin: 11/08/20 17:49 Dose: Not Given Documented by: Melatonin (Melatonin 5 Mg Tab) 5 mg PO QHS [facility] Last Admin: 11/08/20 22:33 Dose: Not Given Documented by: Mirtazapine (Mirtazapine 15 Mg Tab) 15 mg PO QHS [facility] Last Admin: 11/08/20 22:33 Dose: Not Given Documented by: Pravastatin Sodium (Pravastatin 40 Mg Tab) 40 mg PO QHS [facility] Last Admin: 11/08/20 22:33 Dose: Not Given Documented by: Risperidone (Risperidone 0.25 Mg Tab) 0.5 mg PO BID [facility] Last Admin: 11/08/20 22:33 Dose: Not Given Documented by: Valproic Acid (Valproic Acid 250 Mg/5 Ml Oral Liqd) 250 mg PO BID [facility] Last Admin: 11/08/20 22:33 Dose: Not Given Documented by: Ziprasidone (Ziprasidone Mesylate 20 Mg Vial) 10 mg IM Q6H PRN PRN Reason: Agitation Last Admin: 11/04/20 15:13 Dose: 10 mg Documented by: Results - Results Labs/Vitals: Laboratory Last Values WBC 5.0 K/mm3 (4.5-11.0) 11/04/20 21: RBC 3.31 M/mm3 (3.65-5.03) L 11/04/20 21:23 Hgb 10.5 gm/dl (11.8-15.2) L 11/04/20 21:23 Hct 30.3 % (35.5-45.6) L 11/04/20 21:23 MCV 92 fl (84-94) 11/04/20 21: MCH 32 pg (28-32) 11/04/20 21:23 MCHC 35 % (32-34) H 11/04/20 21: RDW 13.2 % (13.2-15.2) 11/04/20 21:23 Plt Count 167 K/mm3 (140-440) 11/04/20 21:23 Lymph % (Auto) 21.4 % (13.4-35.0) 11/04/20 21:23 [place] % (Auto) 7.9 % (0.0-7.3) H 11/04/20 21:23 Eos % (Auto) 0.5 % (0.0-4.3) 11/04/20 21: Baso % (Auto) 0.6 % (0.0-1.8) 11/04/20 21: Lymph # (Auto) 1.1 K/mm3 (1.2-5.4) L 11/04/20 21: [place] # (Auto) 0.4 K/mm3 (0.0-0.8) 11/04/20 21: Eos # (Auto) 0.0 K/mm3 (0.0-0.4) 11/04/20 21: Baso # (Auto) 0.0 K/mm3 (0.0-0.1) 11/04/20 21: Seg Neutrophils % 69.6 % (40.0-70.0) 11/04/20 21: Seg Neutrophils # 3.5 K/mm3 (1.8-7.7) 11/04/20 21:23 Sodium 141 mmol/L (137-145) 11/04/20 21: Potassium 4.6 mmol/L (3.6-5.0) 11/04/20 21: Chloride 107.8 mmol/L (98-107) H 11/04/20 21:23 Carbon Dioxide 23 mmol/L (22-30) 11/04/20 21:23 Anion Gap 15 mmol/L 11/04/20 21:23 BUN 42 mg/dL (9-20) H 11/04/20 21:23 Creatinine 2.8 mg/dL (0.8-1.3) H 11/04/20 21:23 Estimated GFR 23 ml/min 11/04/20 21:23 BUN/Creatinine Ratio 15 % 11/04/20 21:23 Glucose 156 mg/dL (75-100) H 11/04/20 21:23 POC Glucose 84 mg/dL (70-105) 11/08/20 19:59 Hemoglobin A1c 5.2 % (4-6) 11/04/20 21: Calcium 8.9 mg/dL (8.4-10.2) 11/04/20 21: Total Bilirubin 0.50 mg/dL (0.1-1.2) 11/04/20 21: AST 17 units/L (5-40) 11/04/20 21: ALT 9 units/L (7-56) 11/04/20 21: Alkaline Phosphatase 100 units/L (35-129) 11/04/20 21: Total Protein 6.9 g/dL (6.3-8.2) 11/04/20: Albumin 3.9 g/dL (3.9-5) 11/04/20 21: Albumin/Globulin Ratio 1.3 % 11/04/20 21: Triglycerides 73 mg/dL (2-149) 11/04/20 21: Cholesterol 133 mg/dL (50-199) 11/04/20 21: LDL Cholesterol Direct 79 mg/dL (50-130) 11/04/20 21: HDL Cholesterol 48 mg/dL (40-59) 11/04/20: Cholesterol/HDL Ratio 2.77 % 11/04/20 21: TSH 2.440 mlU/mL (0.270-4.200) 11/04/20 21:23 Last Vital Signs Temp 98.1 F 11/08/20 22:00 Pulse 56 L 11/08/20 22:00 Resp 20 11/08/20 22:00 BP 147/59 11/08/20 22:00 Pulse Ox 98 11/08/20 22:00
[2020-11-09] MEDS: risperiDONE 0.25 MG TAB PO SCH ×2 (13:00→21:49)
[2020-11-09] MEDS: VALPROIC ACID 250 MG/5 ML ORAL LIQD PO SCH ×2 (13:00→21:50)
[2020-11-09] MEDS: MELATONIN 5 MG TAB PO SCH (21:49)
[2020-11-09] MEDS: MIRTAZAPINE 15 MG TAB PO SCH (21:50)
[2020-11-09] MEDS: PRAVASTATIN 40 MG TAB PO SCH (21:50)
[2020-11-09 23:50] LABS: Calcium 8.5 mg/dL (8.4-10.2)
[2020-11-09] MEDS: ZIPRASIDONE MESYLATE 20 MG VIAL IM PRN (23:55)
--- NOTE | 2020-11-10 08:50 | Progress Note ---
Subjective Date of service: 11/10/20 Principal diagnosis: (1) Dementia with behavioral disturbance Subjective Comment: Psych nurse: [address] Aaron notified of patient not eating or drinking the past days, blood work had been ordered, lab yet to draw. Lab was reminded to come draw. Pt better late morning, he ate 50% breakfast and a few bites for lunch. Pt. was cursing, resisting care, ambulating with his back bent and trying to pick stuff off the floor. Staff closely monitoring pt. Psych Progress Mr Hernandez seen in room, seated up right, when asked questions, patient started laughing, mimicking me, and then mentioned he would spit on me. Patient then spoke to self saying" this one comes in, referring to me that I am always talking. WHen asked ho whe is doing, patient says he is the best. Reason for continued acute inpatient psychiatric hospitalization: Risperidone increased. Persistently physically agitated unprovoked behavior REVIEW OF SYSTEMS ROS cannot be reliably obtained from the patient due to his withdrawn state MENTAL STATUS EXAMINATION General Appearance and Behavior: Age appropriate, good hygiene, wearing appropriate clothes, uncooperative irritable with questioning. Cooperation: Withdrawn Psychomotor Behavior: Psychomotor agitation Mood: "the best" Affect and affective range: Euthymic Thought Process: Tangential, loose associattion Thought Content: Paranoid and confused Speech: Normal volume, Regular rate and rhythm, Intellectual Functioning: Poor Suicidal Ideation: N/A Homicidal Ideation: N/A Impulse Control: Unimpaired Insight and Judgment: Impaired Memory: memory impaired Attention:Distractible, Orientation: Alert, but disoriented and confused Assessment and Plan - Psychiatric problem (1) Dementia with behavioral disturbance Current Visit: Yes Status: Acute Treatment Plan Risperidone liquid 1mg BID started Continue Remeron 15mh QHS added Patient admitted for inpatient psychiatric evaluation, medication adjustment and close monitoring The patient's behavior, mood, sleep and appetite will be closely monitored. Patient enrolled in individual and group therapeutic sessions and encouraged to attend. Patient provided with a safe and structured environment. Patient's physical health needs will be addressed by the Hospitalist. Hospitalist Consulted Labs including CBC, CMP, Lipid profile and Hemoglobin A1C levels ordered for baseline reference Social Assessment will be completed and the Security Attendant will work with patient and family to ensure a suitable and safe disposition Medication adjustment will be made as clinically indicated Usual Wellness Confucianist/Preservation: - Start Melatonin 5 mg po QHS to promote circadian rhythm - Start [place]-3 for brain health, reduce impulsivity, and as adjunctive treatment for mood disorder, continue upon discharge given overall benefits. - Start B1 prophylaxis with 200 mg po for 5 days The patient agreed on the treatment plan, understood the risk, benefit, alternative treatment, potential consequence of no treatment, and gave informed consent. Initial Certification Inpatient psych services: I certify that the inpatient psychiatric services are required for treatment that could reasonably be expected to improve the patient's condition. Estimated days: 4 Post hospital care: primary care provider, psychiatric provider Assessment and Plan - Patient Problems (1) Dementia with behavioral disturbance Current Visit: Yes Status: Acute Medications and Allergies Allergies Allergy/AdvReac Type Severity Reaction Status Date / Time No Known Allergies Allergy Verified 11/04/20 21:26 Home Medications Medication Instructions Recorded Confirmed Last Taken Type PARoxetine [Paxil] 20 mg PO DAILY 11/04/20 11/06/20 Unknown History Pravastatin [Pravachol] 40 mg PO QHS 11/04/20 11/04/20 Unknown History Trazodone HCl 25 mg PO HS 11/04/20 11/04/20 Unknown History glipiZIDE [Glucotrol] 5 mg PO BID 11/04/20 11/04/20 Unknown History Aspirin EC [Halfprin EC] 81 mg PO DAILY 11/06/20 11/06/20 Unknown History Docusate Sodium [Colace CAP] 100 mg PO HS 11/06/20 11/06/20 Unknown History Ferrous Sulfate [Iron 325 MG] 325 mg PO DAILY 11/06/20 11/06/20 Unknown History HYDROcodone/APAP 5-325 [[place] 1 tab PO Q8HR PRN 11/06/20 11/06/20 Unknown History 5-325 mg TAB] Melatonin [Melatonin 5MG TAB] 5 mg PO QHS 11/06/20 11/06/20 Unknown History Ondansetron HCl [Zofran] 4 mg PO Q8HR PRN 11/06/20 11/06/20 Unknown History amLODIPine 10 mg PO DAILY 11/06/20 11/06/20 Unknown History donepeziL [Aricept] 10 mg PO HS 11/06/20 11/06/20 Unknown History hydrOXYzine HCL [Atarax] 25 mg PO HS 11/06/20 11/06/20 Unknown History hydrOXYzine HCL [Atarax] 25 mg PO TID PRN 11/06/20 11/06/20 Unknown History lisinopriL [Lisinopril] 10 mg PO DAILY 11/06/20 11/06/20 Unknown History Active Meds: Active Medications Glipizide (Glipizide 5 Mg Tab) 5 mg PO BIDDIAB [facility] Last Admin: 11/09/20 18:09 Dose: Not Given Documented by: Melatonin (Melatonin 5 Mg Tab) 5 mg PO QHS [facility] Last Admin: 11/09/20 21:49 Dose: 5 mg Documented by: Mirtazapine (Mirtazapine 15 Mg Tab) 15 mg PO QHS [facility] Last Admin: 11/09/20 21:50 Dose: 15 mg Documented by: Pravastatin Sodium (Pravastatin 40 Mg Tab) 40 mg PO QHS [facility] Last Admin: 11/09/20 21:50 Dose: 40 mg Documented by: Risperidone (Risperidone 0.25 Mg Tab) 0.5 mg PO BID [facility] Last Admin: 11/09/20 21:49 Dose: 0.5 mg Documented by: Valproic Acid (Valproic Acid 250 Mg/5 Ml Oral Liqd) 250 mg PO BID [facility] Last Admin: 11/09/20 21:50 Dose: 250 mg Documented by: Results - Results Labs/Vitals: Laboratory Last Values WBC 5.0 K/mm3 (4.5-11.0) 11/04/20 21: RBC 3.31 M/mm3 (3.65-5.03) L 11/04/20 21:23 Hgb 10.5 gm/dl (11.8-15.2) L 11/04/20 21:23 Hct 30.3 % (35.5-45.6) L 11/04/20 21:23 MCV 92 fl (84-94) 11/04/20 21: MCH 32 pg (28-32) 11/04/20 21: MCHC 35 % (32-34) H 11/04/20 21: RDW 13.2 % (13.2-15.2) 11/04/20 21: Plt Count 167 K/mm3 (140-440) 11/04/20 21:23 Lymph % (Auto) 21.4 % (13.4-35.0) 11/04/20 21:23 [place] % (Auto) 7.9 % (0.0-7.3) H 11/04/20 21:23 Eos % (Auto) 0.5 % (0.0-4.3) 11/04/20 21: Baso % (Auto) 0.6 % (0.0-1.8) 11/04/20 21:23 Lymph # (Auto) 1.1 K/mm3 (1.2-5.4) L 11/04/20 21:23 [place] # (Auto) 0.4 K/mm3 (0.0-0.8) 11/04/20 21:23 Eos # (Auto) 0.0 K/mm3 (0.0-0.4) 11/04/20 21: Baso # (Auto) 0.0 K/mm3 (0.0-0.1) 11/04/20 21: Seg Neutrophils % 69.6 % (40.0-70.0) 11/04/20 21: Seg Neutrophils # 3.5 K/mm3 (1.8-7.7) 11/04/20 21:23 Sodium 140 mmol/L (137-145) 11/09/20 23:05 Potassium 4.6 mmol/L (3.6-5.0) 11/09/20 23:05 Chloride 106.9 mmol/L (98-107) 11/09/20 23:05 Carbon Dioxide 20 mmol/L (22-30) L 11/09/20 23:05 Anion Gap 18 mmol/L 11/09/20 23:05 BUN 42 mg/dL (9-20) H 11/09/20 23:05 Creatinine 3.0 mg/dL (0.8-1.3) H 11/09/20 23:05 Estimated GFR 21 ml/min 11/09/20 23:05 BUN/Creatinine Ratio 14 % 11/09/20 23:05 Glucose 204 mg/dL (75-100) H 11/09/20 23:05 POC Glucose 78 mg/dL (70-105) 11/09/20 06:24 Hemoglobin A1c 5.2 % (4-6) 11/04/20 21:23 Calcium 8.5 mg/dL (8.4-10.2) 11/09/20 23:05 Total Bilirubin 0.50 mg/dL (0.1-1.2) 11/04/20 21: AST 17 units/L (5-40) 11/04/20: ALT 9 units/L (7-56) 11/04/20: Alkaline Phosphatase 100 units/L (35-129) 11/04/20: Total Protein 6.9 g/dL (6.3-8.2) 11/04/20: Albumin 3.9 g/dL (3.9-5) 11/04/20: Albumin/Globulin Ratio 1.3 % 11/04/20: Triglycerides 73 mg/dL (2-149) 11/04/20: Cholesterol 133 mg/dL (50-199) 11/04/20: LDL Cholesterol Direct 79 mg/dL (50-130) 11/04/20: HDL Cholesterol 48 mg/dL (40-59) 11/04/20: Cholesterol/HDL Ratio 2.77 % 11/04/20: TSH 2.440 mlU/mL (0.270-4.200) 11/04/20 21: Last Vital Signs Temp 97.9 F 11/09/20 09:53 Pulse 68 11/09/20 09:53 Resp 16 11/09/20 09:53 BP 116/85 11/09/20 09:53 Pulse Ox 98 11/09/20 09:53
[2020-11-10] MEDS: VALPROIC ACID 250 MG/5 ML ORAL LIQD PO SCH ×2 (12:13→21:39)
[2020-11-10] MEDS: glipiZIDE 5 MG TAB PO SCH ×2 (12:14→16:59)
[2020-11-10] MEDS: risperiDONE 1 MG/1 ML ORAL LIQD PO SCH ×2 (12:15→21:41)
[2020-11-10] MEDS: PRAVASTATIN 40 MG TAB PO SCH (21:40)
[2020-11-10] MEDS: MIRTAZAPINE 15 MG TAB PO SCH (21:40)
[2020-11-10] MEDS: MELATONIN 5 MG TAB PO SCH (21:40)
--- NOTE | 2020-11-11 09:13 | Progress Note ---
Subjective Date of service: 11/11/20 Principal diagnosis: (1) Dementia with behavioral disturbance Subjective Comment: Psych nurse: pt was laying on the floor at the beginning of shift, pt was resistive when staff tried to get him up from the floor, after several attempted staff got him up and put in jean-claude chair where he stayed quietly during the hours of last evening; pt was fed 2cups of pudding , 2cups of apple sauce, one cup of milk, and 2cups of water, medication given crushed in apple sauce. pt continues to be resistive with care, no distress noted, will continue to monitor for safety. Psych Progress Patient seen in room and in bed, alert to loud verbal stimulus but otherwise mumbles most of responses and appears to be sleepy. Reason for continued acute inpatient psychiatric hospitalization: Risperidone increased. Persistently physically agitated unprovoked behavior REVIEW OF SYSTEMS ROS cannot be reliably obtained from the patient due to his withdrawn state MENTAL STATUS EXAMINATION General Appearance and Behavior: Age appropriate, good hygiene, wearing appropriate clothes, uncooperative irritable with questioning. Cooperation: Withdrawn Psychomotor Behavior: Psychomotor agitation Mood: "mumbling" Affect and affective range: Euthymic Thought Process: Tangential, loose associattion Thought Content: Paranoid and confused Speech: low volumbe, mumbling voice, Intellectual Functioning: Poor Suicidal Ideation: N/A Homicidal Ideation: N/A Impulse Control: Unimpaired Insight and Judgment: Impaired Memory: memory impaired Attention:Distractible, Orientation: Alert, but disoriented and confused Assessment and Plan - Psychiatric problem (1) Dementia with behavioral disturbance Current Visit: Yes Status: Acute Treatment Plan Risperidone liquid 1mg BID started Continue Remeron 15mh QHS added Patient admitted for inpatient psychiatric evaluation, medication adjustment and close monitoring The patient's behavior, mood, sleep and appetite will be closely monitored. Patient enrolled in individual and group therapeutic sessions and encouraged to attend. Patient provided with a safe and structured environment. Patient's physical health needs will be addressed by the Hospitalist. Hospit alist Consulted Labs including CBC, CMP, Lipid profile and Hemoglobin A1C levels ordered for baseline reference Social Assessment will be completed and the Parachute Folder will work with patient and family to ensure a suitable and safe disposition Medication adjustment will be made as clinically indicated Usual Wellness Mormon/Preservation: - Start Melatonin 5 mg po QHS to promote circadian rhythm - Start [place]-3 for brain health, reduce impulsivity, and as adjunctive treatment for mood disorder, continue upon discharge given overall benefits. - Start B1 prophylaxis with 200 mg po for 5 days The patient agreed on the treatment plan, understood the risk, benefit, alternative treatment, potential consequence of no treatment, and gave informed consent. Initial Certification Inpatient psych services: I certify that the inpatient psychiatric services are required for treatment that could reasonably be expected to improve the patient's condition. Estimated days: 3 Post hospital care: primary care provider, psychiatric provider Assessment and Plan - Patient Problems (1) Dementia with behavioral disturbance Current Visit: Yes Status: Acute Medications and Allergies Allergies Allergy/AdvReac Type Severity Reaction Status Date / Time No Known Allergies Allergy Verified 11/04/20 21:26 Home Medications Medication Instructions Recorded Confirmed Last Taken Type PARoxetine [Paxil] 20 mg PO DAILY 11/04/20 11/06/20 Unknown History Pravastatin [Pravachol] 40 mg PO QHS 11/04/20 11/04/20 Unknown History Trazodone HCl 25 mg PO HS 11/04/20 11/04/20 Unknown History glipiZIDE [Glucotrol] 5 mg PO BID 11/04/20 11/04/20 Unknown History Aspirin EC [Halfprin EC] 81 mg PO DAILY 11/06/20 11/06/20 Unknown History Docusate Sodium [Colace CAP] 100 mg PO HS 11/06/20 11/06/20 Unknown History Ferrous Sulfate [Iron 325 MG] 325 mg PO DAILY 11/06/20 11/06/20 Unknown History HYDROcodone/APAP 5-325 [[place] 1 tab PO Q8HR PRN 11/06/20 11/06/20 Unknown History 5-325 mg TAB] Melatonin [Melatonin 5MG TAB] 5 mg PO QHS 11/06/20 11/06/20 Unknown History Ondansetron HCl [Zofran] 4 mg PO Q8HR PRN 11/06/20 11/06/20 Unknown History amLODIPine 10 mg PO DAILY 11/06/20 11/06/20 Unknown History donepeziL [Aricept] 10 mg PO HS 11/06/20 11/06/20 Unknown History hydrOXYzine HCL [Atarax] 25 mg PO HS 11/06/20 11/06/20 Unknown History hydrOXYzine HCL [Atarax] 25 mg PO TID PRN 11/06/20 11/06/20 Unknown History lisinopriL [Lisinopril] 10 mg PO DAILY 11/06/20 11/06/20 Unknown History Active Meds: Active Medications Glipizide (Glipizide 5 Mg Tab) 5 mg PO BIDDIAB [facility] Last Admin: 11/10/20 16:59 Dose: 5 mg Documented by: Melatonin (Melatonin 5 Mg Tab) 5 mg PO QHS [facility] Last Admin: 11/10/20 21:40 Dose: 5 mg Documented by: Mirtazapine (Mirtazapine 15 Mg Tab) 15 mg PO QHS [facility] Last Admin: 11/10/20 21:40 Dose: 15 mg Documented by: Pravastatin Sodium (Pravastatin 40 Mg Tab) 40 mg PO QHS [facility] Last Admin: 11/10/20 21:40 Dose: 40 mg Documented by: Risperidone (Risperidone 1 Mg/1 Ml Oral Liqd) 1 mg PO BID [facility] Last Admin: 11/10/20 21:41 Dose: 1 mg Documented by: Valproic Acid (Valproic Acid 250 Mg/5 Ml Oral Liqd) 250 mg PO BID [facility] Last Admin: 11/10/20 21:39 Dose: 250 mg Documented by: Results - Results Labs/Vitals: Laboratory Last Values WBC 5.0 K/mm3 (4.5-11.0) 11/04/20 21: RBC 3.31 M/mm3 (3.65-5.03) L 11/04/20 21:23 Hgb 10.5 gm/dl (11.8-15.2) L 11/04/20 21:23 Hct 30.3 % (35.5-45.6) L 11/04/20 21:23 MCV 92 fl (84-94) 11/04/20 21:23 MCH 32 pg (28-32) 11/04/20 21:23 MCHC 35 % (32-34) H 11/04/20 21:23 RDW 13.2 % (13.2-15.2) 11/04/20 21:23 Plt Count 167 K/mm3 (140-440) 11/04/20 21:23 Lymph % (Auto) 21.4 % (13.4-35.0) 11/04/20 21:23 [place] % (Auto) 7.9 % (0.0-7.3) H 05/13/21 21:23 Eos % (Auto) 0.5 % (0.0-4.3) 11/04/20 21: Baso % (Auto) 0.6 % (0.0-1.8) 11/04/20 21: Lymph # (Auto) 1.1 K/mm3 (1.2-5.4) L 11/04/20 21: [place] # (Auto) 0.4 K/mm3 (0.0-0.8) 11/04/20 21: Eos # (Auto) 0.0 K/mm3 (0.0-0.4) 11/04/20 21: Baso # (Auto) 0.0 K/mm3 (0.0-0.1) 11/04/20 21: Seg Neutrophils % 69.6 % (40.0-70.0) 11/04/20 21: Seg Neutrophils # 3.5 K/mm3 (1.8-7.7) 11/04/20 21:23 Sodium 140 mmol/L (137-145) 11/09/20 23:05 Potassium 4.6 mmol/L (3.6-5.0) 11/09/20 23:05 Chloride 106.9 mmol/L (98-107) 11/09/20 23:05 Carbon Dioxide 20 mmol/L (22-30) L 11/09/20 23:05 Anion Gap 18 mmol/L 11/09/20 23:05 BUN 42 mg/dL (9-20) H 11/09/20 23:05 Creatinine 3.0 mg/dL (0.8-1.3) H 11/09/20 23:05 Estimated GFR 21 ml/min 11/09/20 23:05 BUN/Creatinine Ratio 14 % 11/09/20 23:05 Glucose 204 mg/dL (75-100) H 11/09/20 23:05 POC Glucose 100 mg/dL (70-105) 11/10/20 06:07 Hemoglobin A1c 5.2 % (4-6) 11/04/20 21:23 Calcium 8.5 mg/dL (8.4-10.2) 11/09/20 23:05 Total Bilirubin 0.50 mg/dL (0.1-1.2) 11/04/20 21:23 AST 17 units/L (5-40) 11/04/20 21: ALT 9 units/L (7-56) 11/04/20 21: Alkaline Phosphatase 100 units/L (35-129) 11/04/20 21: Total Protein 6.9 g/dL (6.3-8.2) 11/04/20: Albumin 3.9 g/dL (3.9-5) 11/04/20: Albumin/Globulin Ratio 1.3 % 11/04/20 21: Triglycerides 73 mg/dL (2-149) 11/04/20 21: Cholesterol 133 mg/dL (50-199) 11/04/20 21: LDL Cholesterol Direct 79 mg/dL (50-130) 11/04/20: HDL Cholesterol 48 mg/dL (40-59) 11/04/20: Cholesterol/HDL Ratio 2.77 % 11/04/20: TSH 2.440 mlU/mL (0.270-4.200) 11/04/20 21: Last Vital Signs Temp 98.6 F 11/10/20 22:00 Pulse 75 11/10/20 22:00 Resp 18 11/10/20 22:00 BP 135/68 11/10/20 22:00 Pulse Ox 99 11/10/20 22:00
[2020-11-11] MEDS: VALPROIC ACID 250 MG/5 ML ORAL LIQD PO SCH ×2 (11:46→21:55)
[2020-11-11] MEDS: risperiDONE 1 MG/1 ML ORAL LIQD PO SCH ×2 (11:46→21:55)
[2020-11-11] MEDS: glipiZIDE 5 MG TAB PO SCH ×2 (13:34→18:25)
[2020-11-11] MEDS: PRAVASTATIN 40 MG TAB PO SCH (22:00)
[2020-11-11] MEDS: MIRTAZAPINE 15 MG TAB PO SCH (22:00)
[2020-11-11] MEDS: MELATONIN 5 MG TAB PO SCH (22:01)
--- NOTE | 2020-11-12 09:01 | Progress Note ---
Subjective Date of service: 11/12/20 Principal diagnosis: (1) Dementia with behavioral disturbance Subjective Comment: The patient was seen today, he is in the dayroom. He is irritable and uncooperative. The patient is confused and mumbling at times. He says "I don't have to talk to you." REVIEW OF SYSTEMS ROS cannot be reliably obtained from the patient due to his withdrawn state MENTAL STATUS EXAMINATION General Appearance and Behavior: Age appropriate, good hygiene, wearing appropriate clothes, uncooperative irritable with questioning. Cooperation: Withdrawn Psychomotor Behavior: Psychomotor agitation Mood: "mumbling" Affect and affective range: Euthymic Thought Process: Tangential, loose associattion Thought Content: Paranoid and confused Speech: low volumbe, mumbling voice, Intellectual Functioning: Poor Suicidal Ideation: N/A Homicidal Ideation: N/A Impulse Control: Unimpaired Insight and Judgment: Impaired Memory: memory impaired Attention:Distractible, Orientation: Alert, but disoriented and confused Assessment and Plan (1) Dementia with behavioral disturbance Current Visit: Yes Status: Acute Treatment Plan Patient admitted for inpatient psychiatric evaluation, medication adjustment and close monitoring The patient's behavior, mood, sleep and appetite will be closely monitored. Patient enrolled in individual and group therapeutic sessions and encouraged to attend. Patient provided with a safe and structured environment. Patient's physical health needs will be addressed by the Hospitalist. Hospitalist Consulted Labs including CBC, CMP, Lipid profile and Hemoglobin A1C levels ordered for baseline reference Valproic level 11/16 Social Assessment will be completed and the Communications Department Head will work with patient and family to ensure a suitable and safe disposition Medication adjustment will be made as clinically indicated Increase Valproic 250mg po TID Usual Wellness Episcopalian/Preservation: - Start Melatonin 5 mg po QHS to promote circadian rhythm - Start [place]-3 for brain health, reduce impulsivity, and as adjunctive treatment for mood disorder, continue upon discharge given overall benefits. - Start B1 prophylaxis with 200 mg po for 5 days The patient agreed on the treatment plan, understood the risk, benefit, alternative treatment, potential consequence of no treatment, and gave informed consent. Estimated days: 3 Post hospital care: primary care provider, psychiatric provider Medications and Allergies Allergies Allergy/AdvReac Type Severity Reaction Status Date / Time No Known Allergies Allergy Verified 11/04/20 21:26 Home Medications Medication Instructions Recorded Confirmed Last Taken Type PARoxetine [Paxil] 20 mg PO DAILY 11/04/20 11/06/20 Unknown History Pravastatin [Pravachol] 40 mg PO QHS 11/04/20 11/04/20 Unknown History Trazodone HCl 25 mg PO HS 11/04/20 11/04/20 Unknown History glipiZIDE [Glucotrol] 5 mg PO BID 11/04/20 11/04/20 Unknown History Aspirin EC [Halfprin EC] 81 mg PO DAILY 11/06/20 11/06/20 Unknown History Docusate Sodium [Colace CAP] 100 mg PO HS 11/06/20 11/06/20 Unknown History Ferrous Sulfate [Iron 325 MG] 325 mg PO DAILY 11/06/20 11/06/20 Unknown History HYDROcodone/APAP 5-325 [[place] 1 tab PO Q8HR PRN 11/06/20 11/06/20 Unknown History 5-325 mg TAB] Melatonin [Melatonin 5MG TAB] 5 mg PO QHS 11/06/20 11/06/20 Unknown History Ondansetron HCl [Zofran] 4 mg PO Q8HR PRN 11/06/20 11/06/20 Unknown History amLODIPine 10 mg PO DAILY 11/06/20 11/06/20 Unknown History donepeziL [Aricept] 10 mg PO HS 11/06/20 11/06/20 Unknown History hydrOXYzine HCL [Atarax] 25 mg PO HS 11/06/20 11/06/20 Unknown History hydrOXYzine HCL [Atarax] 25 mg PO TID PRN 11/06/20 11/06/20 Unknown History lisinopriL [Lisinopril] 10 mg PO DAILY 11/06/20 11/06/20 Unknown History Active Meds: Active Medications Glipizide (Glipizide 5 Mg Tab) 5 mg PO BIDDIAB [facility] Last Admin: 11/11/20 18:25 Dose: Not Given Documented by: Melatonin (Melatonin 5 Mg Tab) 5 mg PO QHS [facility] Last Admin: 11/11/20 22:01 Dose: Not Given Documented by: Mirtazapine (Mirtazapine 15 Mg Tab) 15 mg PO QHS [facility] Last Admin: 11/11/20 22:00 Dose: 15 mg Documented by: Pravastatin Sodium (Pravastatin 40 Mg Tab) 40 mg PO QHS [facility] Last Admin: 11/11/20 22:00 Dose: 40 mg Documented by: Risperidone (Risperidone 1 Mg/1 Ml Oral Liqd) 1 mg PO BID [facility] Last Admin: 11/11/20 21:55 Dose: 1 mg Documented by: Valproic Acid (Valproic Acid 250 Mg/5 Ml Oral Liqd) 250 mg PO BID [facility] Last Admin: 11/11/20 21:55 Dose: 250 mg Documented by: Results - Results Labs/Vitals: Laboratory Last Values WBC 5.0 K/mm3 (4.5-11.0) 11/04/20 21: RBC 3.31 M/mm3 (3.65-5.03) L 11/04/20 21: Hgb 10.5 gm/dl (11.8-15.2) L 11/04/20: Hct 30.3 % (35.5-45.6) L 11/04/20 21: MCV 92 fl (84-94) 11/04/20 21: MCH 32 pg (28-32) 11/04/20: MCHC 35 % (32-34) H 11/04/20 21: RDW 13.2 % (13.2-15.2) 11/04/20: Plt Count 167 K/mm3 (140-440) 11/04/20 21: Lymph % (Auto) 21.4 % (13.4-35.0) 11/04/20 21: [place] % (Auto) 7.9 % (0.0-7.3) H 11/04/20 21: Eos % (Auto) 0.5 % (0.0-4.3) 11/04/20: Baso % (Auto) 0.6 % (0.0-1.8) 11/04/20: Lymph # (Auto) 1.1 K/mm3 (1.2-5.4) L 11/04/20: [place] # (Auto) 0.4 K/mm3 (0.0-0.8) 11/04/20 21: Eos # (Auto) 0.0 K/mm3 (0.0-0.4) 11/04/20 21: Baso # (Auto) 0.0 K/mm3 (0.0-0.1) 11/04/20 21:23 Seg Neutrophils % 69.6 % (40.0-70.0) 11/04/20 21:23 Seg Neutrophils # 3.5 K/mm3 (1.8-7.7) 11/04/20 21:23 Sodium 140 mmol/L (137-145) 11/09/20 23:05 Potassium 4.6 mmol/L (3.6-5.0) 11/09/20 23:05 Chloride 106.9 mmol/L (98-107) 11/09/20 23:05 Carbon Dioxide 20 mmol/L (22-30) L 11/09/20 23:05 Anion Gap 18 mmol/L 11/09/20 23:05 BUN 42 mg/dL (9-20) H 11/09/20 23:05 Creatinine 3.0 mg/dL (0.8-1.3) H 11/09/20 23:05 Estimated GFR 21 ml/min 11/09/20 23:05 BUN/Creatinine Ratio 14 % 11/09/20 23:05 Glucose 204 mg/dL (75-100) H 11/09/20 23:05 POC Glucose 72 mg/dL (70-105) 11/11/20 19:27 Hemoglobin A1c 5.2 % (4-6) 11/04/20 21: Calcium 8.5 mg/dL (8.4-10.2) 11/09/20 23:05 Total Bilirubin 0.50 mg/dL (0.1-1.2) 11/04/20 21:23 AST 17 units/L (5-40) 11/04/20 21:23 ALT 9 units/L (7-56) 11/04/20 21:23 Alkaline Phosphatase 100 units/L (35-129) 11/04/20 21:23 Total Protein 6.9 g/dL (6.3-8.2) 11/04/20 21: Albumin 3.9 g/dL (3.9-5) 11/04/20 21: Albumin/Globulin Ratio 1.3 % 11/04/20 21:23 Triglycerides 73 mg/dL (2-149) 11/04/20 21:23 Cholesterol 133 mg/dL (50-199) 11/04/20 21:23 LDL Cholesterol Direct 79 mg/dL (50-130) 11/04/20 21:23 HDL Cholesterol 48 mg/dL (40-59) 11/04/20 21: Cholesterol/HDL Ratio 2.77 % 11/04/20 21:23 TSH 2.440 mlU/mL (0.270-4.200) 11/04/20 21:23 Last Vital Signs Temp 98.6 F 11/12/20 08:05 Pulse 64 11/12/20 08:05 Resp 18 11/12/20 08:05 BP 148/70 11/12/20 08:05 Pulse Ox 100 11/12/20 08:05
[2020-11-12] MEDS: risperiDONE 1 MG/1 ML ORAL LIQD PO SCH ×2 (09:11→21:04)
[2020-11-12] MEDS: glipiZIDE 5 MG TAB PO SCH ×2 (09:12→16:52)
[2020-11-12] MEDS: VALPROIC ACID 250 MG/5 ML ORAL LIQD PO SCH ×2 (14:35→20:53)
[2020-11-12] MEDS: PRAVASTATIN 40 MG TAB PO SCH (21:04)
[2020-11-12] MEDS: MIRTAZAPINE 15 MG TAB PO SCH (21:04)
[2020-11-12] MEDS: MELATONIN 5 MG TAB PO SCH (21:04)
[2020-11-13] MEDS: glipiZIDE 5 MG TAB PO SCH ×2 (08:28→16:26)
[2020-11-13] MEDS: VALPROIC ACID 250 MG/5 ML ORAL LIQD PO SCH ×3 (08:48→22:00)
[2020-11-13] MEDS: risperiDONE 1 MG/1 ML ORAL LIQD PO SCH ×2 (09:18→22:00)
--- NOTE | 2020-11-13 10:47 | Progress Note ---
Subjective Date of service: 11/13/20 Principal diagnosis: (1) Dementia with behavioral disturbance Subjective Comment: Per Nurse Note: pt took medication with a lot of encouragement, pt is resistive with care, combative, slept for 7hrs during the night, no distress noted, will continue to monitor for safety The patient was seen today, he is lying in bed attempting to raise up and appears restless. He is confused and is mumbling at times. He tells me "come here you idiot." REVIEW OF SYSTEMS ROS cannot be reliably obtained from the patient due to his withdrawn state MENTAL STATUS EXAMINATION General Appearance and Behavior: Age appropriate, good hygiene, wearing appropriate clothes, uncooperative irritable with questioning. Cooperation: Withdrawn Psychomotor Behavior: Psychomotor agitation Mood: "mumbling" Affect and affective range: Euthymic Thought Process: Tangential, loose associattion Thought Content: Paranoid and confused Speech: low volumbe, mumbling voice, Intellectual Functioning: Poor Suicidal Ideation: N/A Homicidal Ideation: N/A Impulse Control: Unimpaired Insight and Judgment: Impaired Memory: memory impaired Attention:Distractible, Orientation: Alert, but disoriented and confused Assessment and Plan (1) Dementia with behavioral disturbance Current Visit: Yes Status: Acute Treatment Plan Patient admitted for inpatient psychiatric evaluation, medication adjustment and close monitoring The patient's behavior, mood, sleep and appetite will be closely monitored. Patient enrolled in individual and group therapeutic sessions and encouraged to attend. Patient provided with a safe and structured environment. Patient's physical health needs will be addressed by the Hospitalist. Hospitalist Consulted Labs including CBC, CMP, Lipid profile and Hemoglobin A1C levels ordered for baseline reference Valproic level 11/16 Social Assessment will be completed and the [employer] Server will work with patient and family to ensure a suitable and safe disposition Medication adjustment will be made as clinically indicated Increase Valproic 250mg po TID yesterday Klonopin 0.25mg po daily prn agitation x 3 days Usual Wellness Alevism/Preservation: - Start Melatonin 5 mg po QHS to promote circadian rhythm - Start [place]-3 for brain health, reduce impulsivity, and as adjunctive treatment for mood disorder, continue upon discharge given overall benefits. - Start B1 prophylaxis with 200 mg po for 5 days The patient agreed on the treatment plan, understood the risk, benefit, alternative treatment, potential consequence of no treatment, and gave informed consent. Estimated days: 3 Post hospital care: primary care provider, psychiatric provider Medications and Allergies Allergies Allergy/AdvReac Type Severity Reaction Status Date / Time No Known Allergies Allergy Verified 11/04/20 21:26 Home Medications Medication Instructions Recorded Confirmed Last Taken Type PARoxetine [Paxil] 20 mg PO DAILY 11/04/20 11/06/20 Unknown History Pravastatin [Pravachol] 40 mg PO QHS 11/04/20 11/04/20 Unknown History Trazodone HCl 25 mg PO HS 11/04/20 11/04/20 Unknown History glipiZIDE [Glucotrol] 5 mg PO BID 11/04/20 11/04/20 Unknown History Aspirin EC [Halfprin EC] 81 mg PO DAILY 11/06/20 11/06/20 Unknown History Docusate Sodium [Colace CAP] 100 mg PO HS 11/06/20 11/06/20 Unknown History Ferrous Sulfate [Iron 325 MG] 325 mg PO DAILY 11/06/20 11/06/20 Unknown History HYDROcodone/APAP 5-325 [[place] 1 tab PO Q8HR PRN 11/06/20 11/06/20 Unknown History 5-325 mg TAB] Melatonin [Melatonin 5MG TAB] 5 mg PO QHS 11/06/20 11/06/20 Unknown History Ondansetron HCl [Zofran] 4 mg PO Q8HR PRN 11/06/20 11/06/20 Unknown History amLODIPine 10 mg PO DAILY 11/06/20 11/06/20 Unknown History donepeziL [Aricept] 10 mg PO HS 11/06/20 11/06/20 Unknown History hydrOXYzine HCL [Atarax] 25 mg PO HS 11/06/20 11/06/20 Unknown History hydrOXYzine HCL [Atarax] 25 mg PO TID PRN 11/06/20 11/06/20 Unknown History lisinopriL [Lisinopril] 10 mg PO DAILY 11/06/20 11/06/20 Unknown History Active Meds: Active Medications Glipizide (Glipizide 5 Mg Tab) 5 mg PO BIDDIAB [facility] Last Admin: 11/13/20 08:28 Dose: 5 mg Documented by: Melatonin (Melatonin 5 Mg Tab) 5 mg PO QHS [facility] Last Admin: 11/12/20 21:04 Dose: 5 mg Documented by: Mirtazapine (Mirtazapine 15 Mg Tab) 15 mg PO QHS [facility] Last Admin: 11/12/20 21:04 Dose: 15 mg Documented by: Pravastatin Sodium (Pravastatin 40 Mg Tab) 40 mg PO QHS [facility] Last Admin: 11/12/20 21:04 Dose: 40 mg Documented by: Risperidone (Risperidone 1 Mg/1 Ml Oral Liqd) 1 mg PO BID [facility] Last Admin: 11/13/20 09:18 Dose: 1 mg Documented by: Valproic Acid (Valproic Acid 250 Mg/5 Ml Oral Liqd) 250 mg PO TID [facility] Last Admin: 11/13/20 08:48 Dose: 250 mg Documented by: Results - Results Labs/Vitals: Laboratory Last Values WBC 5.0 K/mm3 (4.5-11.0) 11/04/20 21: RBC 3.31 M/mm3 (3.65-5.03) L 11/04/20 21: Hgb 10.5 gm/dl (11.8-15.2) L 11/04/20 21: Hct 30.3 % (35.5-45.6) L 11/04/20 21: MCV 92 fl (84-94) 11/04/20 21: MCH 32 pg (28-32) 11/04/20 21: MCHC 35 % (32-34) H 11/04/20 21: RDW 13.2 % (13.2-15.2) 11/04/20 21: Plt Count 167 K/mm3 (140-440) 11/04/20 21: Lymph % (Auto) 21.4 % (13.4-35.0) 11/04/20 21: [place] % (Auto) 7.9 % (0.0-7.3) H 11/04/20 21: Eos % (Auto) 0.5 % (0.0-4.3) 11/04/20: Baso % (Auto) 0.6 % (0.0-1.8) 11/04/20 21: Lymph # (Auto) 1.1 K/mm3 (1.2-5.4) L 11/04/20 21: [place] # (Auto) 0.4 K/mm3 (0.0-0.8) 11/04/20 21:23 Eos # (Auto) 0.0 K/mm3 (0.0-0.4) 11/04/20 21:23 Baso # (Auto) 0.0 K/mm3 (0.0-0.1) 11/04/20 21:23 Seg Neutrophils % 69.6 % (40.0-70.0) 11/04/20 21:23 Seg Neutrophils # 3.5 K/mm3 (1.8-7.7) 11/04/20 21:23 Sodium 140 mmol/L (137-145) 11/09/20 23:05 Potassium 4.6 mmol/L (3.6-5.0) 11/09/20 23:05 Chloride 106.9 mmol/L (98-107) 11/09/20 23:05 Carbon Dioxide 20 mmol/L (22-30) L 11/09/20 23:05 Anion Gap 18 mmol/L 11/09/20 23:05 BUN 42 mg/dL (9-20) H 11/09/20 23:05 Creatinine 3.0 mg/dL (0.8-1.3) H 11/09/20 23:05 Estimated GFR 21 ml/min 11/09/20 23:05 BUN/Creatinine Ratio 14 % 11/09/20 23:05 Glucose 204 mg/dL (75-100) H 11/09/20 23:05 POC Glucose 111 mg/dL (70-105) H 11/13/20 06:07 Hemoglobin A1c 5.2 % (4-6) 11/04/20 21: Calcium 8.5 mg/dL (8.4-10.2) 11/09/20 23:05 Total Bilirubin 0.50 mg/dL (0.1-1.2) 11/04/20 21:23 AST 17 units/L (5-40) 11/04/20 21:23 ALT 9 units/L (7-56) 11/04/20 21:23 Alkaline Phosphatase 100 units/L (35-129) 11/04/20 21:23 Total Protein 6.9 g/dL (6.3-8.2) 11/04/20 21:23 Albumin 3.9 g/dL (3.9-5) 11/04/20 21:23 Albumin/Globulin Ratio 1.3 % 11/04/20 21:23 Triglycerides 73 mg/dL (2-149) 11/04/20 21: Cholesterol 133 mg/dL (50-199) 11/04/20 21: LDL Cholesterol Direct 79 mg/dL (50-130) 11/04/20 21: HDL Cholesterol 48 mg/dL (40-59) 11/04/20 21: Cholesterol/HDL Ratio 2.77 % 11/04/20 21: TSH 2.440 mlU/mL (0.270-4.200) 11/04/20 21:23 Last Vital Signs Temp 97.6 F 11/12/20 19:59 Pulse 81 11/12/20 19:59 Resp 18 11/12/20 19:59 BP 109/74 11/12/20 19:59 Pulse Ox 99 11/12/20 19:59
[2020-11-13] MEDS ORDERED: clonazePAM 0.5 MG TAB PO PRN (10:51)
[2020-11-13] MEDS: MELATONIN 5 MG TAB PO SCH (22:01)
[2020-11-13] MEDS: PRAVASTATIN 40 MG TAB PO SCH (22:01)
[2020-11-13] MEDS: MIRTAZAPINE 15 MG TAB PO SCH (22:01)
[2020-11-14] MEDS: VALPROIC ACID 250 MG/5 ML ORAL LIQD PO SCH ×3 (08:14→21:00)
[2020-11-14] MEDS: glipiZIDE 5 MG TAB PO SCH ×2 (08:14→16:28)
[2020-11-14] MEDS: risperiDONE 1 MG/1 ML ORAL LIQD PO SCH ×2 (10:15→21:25)
--- NOTE | 2020-11-14 10:17 | Progress Note ---
Subjective Date of service: 11/14/20 Principal diagnosis: (1) Dementia with behavioral disturbance Subjective Comment: Per Nurse Note: Last evening the patient spent in the activity room with his peers. He had little interaction but talked to himself. Patient is irritable and becomes agitated if redirected. He is unable to answer questions regarding suicidal thoughts. He is disoriented and can be observed talking to himself and pointing at unseen objects. His appetite is fair. He ate applesauce and pudding. He drank a cup of ice water. He was medication compliant with medication slowly squirted into his mouth. Overnight the patient twice was restless but was changed and returned to sleep. He slept a total of 8 hours. Will continue to monitor patient for safety. The patient was seen today, he is lying in bed and is heard talking to himself as I'm walking into his room. He then gets quiet and continues to stare at the ceiling. He does not engage in the interview. REVIEW OF SYSTEMS ROS cannot be reliably obtained from the patient due to his withdrawn state MENTAL STATUS EXAMINATION General Appearance and Behavior: Age appropriate, good hygiene, wearing appropriate clothes, uncooperative irritable with questioning. Cooperation: Withdrawn Psychomotor Behavior: Psychomotor agitation Mood: "mumbling" Affect and affective range: Euthymic Thought Process: Tangential, loose associattion Thought Content: Paranoid and confused Speech: low volumbe, mumbling voice, Intellectual Functioning: Poor Suicidal Ideation: N/A Homicidal Ideation: N/A Impulse Control: Unimpaired Insight and Judgment: Impaired Memory: memory impaired Attention:Distractible, Orientation: Alert, but disoriented and confused Assessment and Plan (1) Dementia with behavioral disturbance Current Visit: Yes Status: Acute Treatment Plan Patient admitted for inpatient psychiatric evaluation, medication adjustment and close monitoring The patient's behavior, mood, sleep and appetite will be closely monitored. Patient enrolled in individual and group therapeutic sessions and encouraged to attend. Patient provided with a safe and structured environment. Patient's physical health needs will be addressed by the Hospitalist. Hospitalist Consulted Labs including CBC, CMP, Lipid profile and Hemoglobin A1C levels ordered for baseline reference Valproic level 11/16 Social Assessment will be completed and the Fire Alarm Installer will work with patient and family to ensure a suitable and safe disposition Medication adjustment will be made as clinically indicated Klonopin 0.25mg po daily prn agitation x 3 days yesterday No changes made today Usual Wellness Yazidi/Preservation: - Start Melatonin 5 mg po QHS to promote circadian rhythm - Start [place]-3 for brain health, reduce impulsivity, and as adjunctive treatment for mood disorder, continue upon discharge given overall benefits. - Start B1 prophylaxis with 200 mg po for 5 days The patient agreed on the treatment plan, understood the risk, benefit, alternative treatment, potential consequence of no treatment, and gave informed consent. Estimated days: 3 Post hospital care: primary care provider, psychiatric provider Medications and Allergies Allergies Allergy/AdvReac Type Severity Reaction Status Date / Time No Known Allergies Allergy Verified 11/04/20 21:26 Home Medications Medication Instructions Recorded Confirmed Last Taken Type PARoxetine [Paxil] 20 mg PO DAILY 11/04/20 11/06/20 Unknown History Pravastatin [Pravachol] 40 mg PO QHS 11/04/20 11/04/20 Unknown History Trazodone HCl 25 mg PO HS 11/04/20 11/04/20 Unknown History glipiZIDE [Glucotrol] 5 mg PO BID 11/04/20 11/04/20 Unknown History Aspirin EC [Halfprin EC] 81 mg PO DAILY 11/06/20 11/06/20 Unknown History Docusate Sodium [Colace CAP] 100 mg PO HS 11/06/20 11/06/20 Unknown History Ferrous Sulfate [Iron 325 MG] 325 mg PO DAILY 11/06/20 11/06/20 Unknown History HYDROcodone/APAP 5-325 [[place] 1 tab PO Q8HR PRN 11/06/20 11/06/20 Unknown History 5-325 mg TAB] Melatonin [Melatonin 5MG TAB] 5 mg PO QHS 11/06/20 11/06/20 Unknown History Ondansetron HCl [Zofran] 4 mg PO Q8HR PRN 11/06/20 11/06/20 Unknown History amLODIPine 10 mg PO DAILY 11/06/20 11/06/20 Unknown History donepeziL [Aricept] 10 mg PO HS 11/06/20 11/06/20 Unknown History hydrOXYzine HCL [Atarax] 25 mg PO HS 11/06/20 11/06/20 Unknown History hydrOXYzine HCL [Atarax] 25 mg PO TID PRN 11/06/20 11/06/20 Unknown History lisinopriL [Lisinopril] 10 mg PO DAILY 11/06/20 11/06/20 Unknown History Active Meds: Active Medications Clonazepam (Clonazepam 0.5 Mg Tab) 0.25 mg PO DAILY PRN PRN Reason: agitation Stop: 11/16/20 06:00 Last Admin: 11/13/20 18:05 Dose: 0.25 mg Documented by: Glipizide (Glipizide 5 Mg Tab) 5 mg PO BIDDIAB [facility] Last Admin: 11/14/20 08:14 Dose: 5 mg Documented by: Melatonin (Melatonin 5 Mg Tab) 5 mg PO QHS [facility] Last Admin: 11/13/20 22:01 Dose: 5 mg Documented by: Mirtazapine ([facility] 15 Mg Tab) [facility] Admin: 11/13/20 22:01 Dose: 15 mg Documented by: Pravastatin Sodium (Pravastatin 40 Mg Tab) [facility] Last Admin: 11/13/20 22:01 Dose: 40 mg Documented by: Risperidone (Risperidone 1 Mg/1 Ml Oral Liqd) 1 mg PO BID [facility] Last Admin: 11/14/20 10:15 Dose: 1 mg Documented by: Valproic Acid (Valproic Acid 250 Mg/5 Ml Oral Liqd) 250 mg PO TID [facility] Last Admin: 11/14/20 08:14 Dose: 250 mg Documented by: Results - Results Labs/Vitals: Laboratory Last Values WBC 5.0 K/mm3 (4.5-11.0) 11/04/20 21: RBC 3.31 M/mm3 (3.65-5.03) L 11/04/20 21: Hgb 10.5 gm/dl (11.8-15.2) L 11/04/20 21: Hct 30.3 % (35.5-45.6) L 11/04/20 21: MCV 92 fl (84-94) 11/04/20 21: MCH 32 pg (28-32) 11/04/20 21: MCHC 35 % (32-34) H 11/04/20 21: RDW 13.2 % (13.2-15.2) 11/04/20 21: Plt Count 167 K/mm3 (140-440) 11/04/20 21:23 Lymph % (Auto) 21.4 % (13.4-35.0) 11/04/20 21: [place] % (Auto) 7.9 % (0.0-7.3) H 11/04/20 21: Eos % (Auto) 0.5 % (0.0-4.3) 11/04/20 21: Baso % (Auto) 0.6 % (0.0-1.8) 11/04/20 21: Lymph # (Auto) 1.1 K/mm3 (1.2-5.4) L 11/04/20 21: [place] # (Auto) 0.4 K/mm3 (0.0-0.8) 11/04/20 21: Eos # (Auto) 0.0 K/mm3 (0.0-0.4) 11/04/20 21: Baso # (Auto) 0.0 K/mm3 (0.0-0.1) 11/04/20 21: Seg Neutrophils % 69.6 % (40.0-70.0) 11/04/20 21: Seg Neutrophils # 3.5 K/mm3 (1.8-7.7) 11/04/20 21:23 Sodium 140 mmol/L (137-145) 11/09/20 23:05 Potassium 4.6 mmol/L (3.6-5.0) 11/09/20 23:05 Chloride 106.9 mmol/L (98-107) 11/09/20 23:05 Carbon Dioxide 20 mmol/L (22-30) L 11/09/20 23:05 Anion Gap 18 mmol/L 11/09/20 23:05 BUN 42 mg/dL (9-20) H 11/09/20 23:05 Creatinine 3.0 mg/dL (0.8-1.3) H 11/09/20 23:05 Estimated GFR 21 ml/min 11/09/20 23:05 BUN/Creatinine Ratio 14 % 11/09/20 23:05 Glucose 204 mg/dL (75-100) H 11/09/20 23:05 POC Glucose 111 mg/dL (70-105) H 11/13/20 06:07 Hemoglobin A1c 5.2 % (4-6) 11/04/20 21:23 Calcium 8.5 mg/dL (8.4-10.2) 11/09/20 23:05 Total Bilirubin 0.50 mg/dL (0.1-1.2) 11/04/20 21: AST 17 units/L (5-40) 11/04/20 21: ALT 9 units/L (7-56) 11/04/20 21: Alkaline Phosphatase 100 units/L (35-129) 11/04/20 21: Total Protein 6.9 g/dL (6.3-8.2) 11/04/20 21: Albumin 3.9 g/dL (3.9-5) 11/04/20 21: Albumin/Globulin Ratio 1.3 % 11/04/20 21: Triglycerides 73 mg/dL (2-149) 11/04/20 21: Cholesterol 133 mg/dL (50-199) 11/04/20 21: LDL Cholesterol Direct 79 mg/dL (50-130) 11/04/20 21: HDL Cholesterol 48 mg/dL (40-59) 11/04/20 21: Cholesterol/HDL Ratio 2.77 % 11/04/20 21: TSH 2.440 mlU/mL (0.270-4.200) 11/04/20 21:23 Last Vital Signs Temp 98.5 F 11/13/20 19:38 Pulse 66 11/13/20 19:38 Resp 18 11/13/20 19:38 BP 157/69 11/13/20 19:38 Pulse Ox 99 11/13/20 19:38
[2020-11-14] MEDS: MELATONIN 5 MG TAB PO SCH (21:25)
[2020-11-14] MEDS: PRAVASTATIN 40 MG TAB PO SCH (21:25)
[2020-11-14] MEDS: MIRTAZAPINE 15 MG TAB PO SCH (21:25)
[2020-11-15] MEDS: VALPROIC ACID 250 MG/5 ML ORAL LIQD PO SCH ×2 (09:12→14:13)
[2020-11-15] MEDS: glipiZIDE 5 MG TAB PO SCH (09:12)
--- NOTE | 2020-11-15 10:18 | Discharge Summary ---
Providers - Providers Date of Admission: 11/04/20 14:12 Date of discharge: 11/15/20 Attending physician: ALEX COLON MD 11/04/20 13:19 Consult to Physician [CONS] Routine Comment: Consulting Provider: AMARILYS ROJAS Physician Instructions: Reason For Exam: manage medical conditons Primary care physician: CHANNEL ROUGHER Hospitalization Reason for admission: agitation Admitting Diagnosis: F02.81 - DEMENTIA IN OTH DISEASES CLASSD ELSWHR W BEHAVIORAL DISTURB Condition: Stable Disposition: DC-01 TO HOME OR SELFCARE Time spent for discharge: 38 Allergies/Adverse Reactions: Allergies No Known Allergies Allergy (Verified 11/04/20 21:26) Vital Signs: Last Vital Signs Temp 98.5 F 11/14/20 19:33 Pulse 56 L 11/14/20 19:33 Resp 17 11/14/20 19:33 BP 144/73 11/14/20 19:33 Pulse Ox 99 11/14/20 19:33 Last Lab: Laboratory Last Values WBC 5.0 K/mm3 (4.5-11.0) 11/04/20 21: RBC 3.31 M/mm3 (3.65-5.03) L 11/04/20 21:23 Hgb 10.5 gm/dl (11.8-15.2) L 11/04/20 21:23 Hct 30.3 % (35.5-45.6) L 11/04/20 21: MCV 92 fl (84-94) 11/04/20 21: MCH 32 pg (28-32) 11/04/20 21: MCHC 35 % (32-34) H 11/04/20 21:23 RDW 13.2 % (13.2-15.2) 11/04/20 21: Plt Count 167 K/mm3 (140-440) 11/04/20 21:23 Lymph % (Auto) 21.4 % (13.4-35.0) 11/04/20 21: [place] % (Auto) 7.9 % (0.0-7.3) H 11/04/20 21:23 Eos % (Auto) 0.5 % (0.0-4.3) 11/04/20 21:23 Baso % (Auto) 0.6 % (0.0-1.8) 11/04/20 21:23 Lymph # (Auto) 1.1 K/mm3 (1.2-5.4) L 11/04/20 21:23 [place] # (Auto) 0.4 K/mm3 (0.0-0.8) 11/04/20 21:23 Eos # (Auto) 0.0 K/mm3 (0.0-0.4) 11/04/20 21:23 Baso # (Auto) 0.0 K/mm3 (0.0-0.1) 11/04/20 21:23 Seg Neutrophils % 69.6 % (40.0-70.0) 11/04/20 21: Seg Neutrophils # 3.5 K/mm3 (1.8-7.7) 11/04/20 21:23 Sodium 140 mmol/L (137-145) 11/09/20 23:05 Potassium 4.6 mmol/L (3.6-5.0) 11/09/20 23:05 Chloride 106.9 mmol/L (98-107) 11/09/20 23:05 Carbon Dioxide 20 mmol/L (22-30) L 11/09/20 23:05 Anion Gap 18 mmol/L 11/09/20 23:05 BUN 42 mg/dL (9-20) H 11/09/20 23:05 Creatinine 3.0 mg/dL (0.8-1.3) H 11/09/20 23:05 Estimated GFR 21 ml/min 11/09/20 23:05 BUN/Creatinine Ratio 14 % 11/09/20 23:05 Glucose 204 mg/dL (75-100) H 11/09/20 23:05 POC Glucose 154 mg/dL (70-105) H 11/15/20 06:22 Hemoglobin A1c 5.2 % (4-6) 11/04/20 21:23 Calcium 8.5 mg/dL (8.4-10.2) 11/09/20 23:05 Total Bilirubin 0.50 mg/dL (0.1-1.2) 11/04/20 21:23 AST 17 units/L (5-40) 11/04/20 21:23 ALT 9 units/L (7-56) 11/04/20 21:23 Alkaline Phosphatase 100 units/L (35-129) 11/04/20 21:23 Total Protein 6.9 g/dL (6.3-8.2) 11/04/20 21: Albumin 3.9 g/dL (3.9-5) 11/04/20 21: Albumin/Globulin Ratio 1.3 % 11/04/20 21:23 Triglycerides 73 mg/dL (2-149) 11/04/20 21: Cholesterol 133 mg/dL (50-199) 11/04/20 21: LDL Cholesterol Direct 79 mg/dL (50-130) 11/04/20 21: HDL Cholesterol 48 mg/dL (40-59) 11/04/20 21: Cholesterol/HDL Ratio 2.77 % 11/04/20 21: TSH 2.440 mlU/mL (0.270-4.200) 11/04/20 21:23 Core Measure Documentation - Palliative Care Palliative Care/ Comfort Measures: Not Applicable - Core Measures Any of the following diagnoses?: none Exam - Constitutional Vitals: Temp Pulse Resp BP Pulse Ox 98.5 F 56 L 17 144/73 99 11/14/20 19:33 11/14/20 19:33 11/14/20 19:33 11/14/20 19:33 11/14/20 19:33 General appearance: Present: no acute distress - EENT Eyes: Present: PERRL, EOM intact ENT: hearing intact, clear oral mucosa - Neck Neck: Present: supple, normal ROM - Respiratory Respiratory effort: normal Plan Activity: advance as tolerated Weight Bearing Status: Weight Bear as Tolerated Care Plan Goals: Maintain good and stable mental health Assessment: Dementia with Behavioral Disturbance Follow up with: PRIMARY CARE, [Primary Care Provider] - 7 Days Prescriptions: Melatonin [Melatonin 5MG TAB] 5 mg PO QHS #30 tablet Mirtazapine [Remeron 15mg TAB] 15 mg PO QHS #30 tablet VALPROIC ACID Liq [DepaKENE Liq] 250 mg PO TID #90 oral.liqd risperiDONE [RisperDAL ORAL LIQD] 1 mg PO BID #60 ml
[2020-11-15] MEDS: risperiDONE 1 MG/1 ML ORAL LIQD PO SCH (14:12)
[2020-11-15 15:40] VITALS: BP 153/79
== END 2020-11-15 15:05 | disposition home or self-care (01) | DRG 884 ==
LOC: 3A 06:50 → UNDOADMIN 06:50 → 5A 14:12
PROVIDERS: ADMIT Psychiatry & Neurology Psychiatry; ATTEND Psychiatry & Neurology Psychiatry
DX: F03.91 Unspecified dementia, unspecified severity, with behavioral disturbance (principal); N17.0 Acute kidney failure with tubular necrosis; I67.2 Cerebral atherosclerosis; E11.9 Type 2 diabetes mellitus without complications; E78.2 Mixed hyperlipidemia; Z82.49 Family history of ischemic heart disease and other diseases of the circulatory system; Z79.899 Other long term (current) drug therapy; Z79.891 Long term (current) use of opiate analgesic; Z79.01 Long term (current) use of anticoagulants
CPT/HCPCS: 36415; 80048; 80053; 80061; 82962; 83036; 84443; 85025; G0378; A9270-GY; J3486